=== PATIENT | male | born 1940 | race Caucasian/White ===

== ENCOUNTER → 2016-10-07 | Outpatient (CLI) | payer MEDICARE, OTHER ==
[~2016-10-07] MED LIST: HYDR-707 PO
--- NOTE | 2016-10-07 16:50 | Diagnostic Imaging Report ---
INDICATION: Left leg injury with continued pain. TECHNIQUE: AP and lateral views of the left lower leg were obtained. FINDINGS: No acute fracture or malalignment is identified. There is mild fragmentation along the inferior margin of the lateral malleolus which may be related to an old avulsion injury. Benign type periosteal reaction is noted involving the tibia and fibula. IMPRESSION: Probable old lateral malleolar avulsion injury without evidence of acute abnormality. Dictated by: Dictated on workstation # [id number]
== END ==
LOC: RAD 16:25
PROVIDERS: ATTEND Family Medicine
DX: M79.662 Pain in left lower leg (principal)
CPT/HCPCS: 73590

== ENCOUNTER → 2016-11-01 | Outpatient (CLI) | payer MEDICARE, OTHER ==
--- NOTE | 2016-11-01 11:12 | Diagnostic Imaging Report ---
PROCEDURE: MRI left joint lower extremity without contrast. TECHNIQUE: Multiplanar, multisequence non contrast-enhanced MRI of the left lower extremity was accomplished. INDICATION: Left knee pain. FINDINGS: There is moderate to large suprapatellar effusion. There is a Duron's cyst measuring 2.9 x 1.8 x 4.7 cm. There is surrounding free fluid seen compatible with leakage. The extensor mechanism is intact. The ACL and the PCL are intact. There is a complex tear involving the body and posterior horn of the medial meniscus. The body of the medial meniscus is extruded. There is a question of small displaced fragment of the torn meniscus seen above the body of the meniscus, possibly a displaced fragment from tear in the posterior horn/body junction. The lateral meniscus demonstrates no definite tear. There is slight buckling of the MCL which appears to relate to the extruded meniscus and adjacent soft tissue thickening underneath the MCL. No MCL tear is seen however. There is severe loss of cartilage in the medial compartment. The lateral compartment demonstrates only mild thinning of the cartilage. The patellofemoral compartment demonstrates moderate to severe thinning of the cartilage along the medial facet of the patella and mild fissuring in the lateral facet. There is significant bone marrow edema in the lateral tibial condyle and the lateral femoral condyle. This is most likely degenerative related. Minimal subchondral edema in the patella is also likely degenerative. The muscle bulk and signal around the knee appear unremarkable. IMPRESSION: 1. Severe cartilage loss and osteoarthritic changes in the medial compartment. There is moderate atherosclerotic changes in the patellofemoral compartment. 2. Complex tear in the medial meniscus, with a question of a small displaced fragment above the extruded torn meniscus body is seen. 3. Large suprapatellar effusion. 4. Leaking Duron's cyst. Dictated by: Dictated on workstation # [id number]
== END ==
LOC: RAD 09:52
PROVIDERS: ATTEND Orthopaedic Surgery
DX: S83.232A Complex tear of medial meniscus, current injury, left knee, initial encounter (principal); M25.462 Effusion, left knee; M17.12 Unilateral primary osteoarthritis, left knee; M66.0 Rupture of popliteal cyst; X58.XXXA Exposure to other specified factors, initial encounter; Y99.8 Other external cause status
CPT/HCPCS: 73721

== ENCOUNTER 2017-01-03 11:24 | Outpatient (RCR) | payer MEDICARE, OTHER | END 2017-01-03 12:26 | disposition home or self-care (01) | PROVIDERS: ATTEND Orthopaedic Surgery | DX: Z47.1 Aftercare following joint replacement surgery (principal); Z96.652 Presence of left artificial knee joint ==

== ENCOUNTER 2018-02-24 16:19 | Emergency (ER) | payer MEDICARE, OTHER ==
[~2018-02-24] VITALS: Ht 180.3 cm; Wt 86.6 kg
--- OUTSIDE RECORDS SUMMARY | 2018-02-24 16:23 | XMS REPORT | Continuity of Care Document ---
Author Author [facility] Organization [facility] Address Unknown Phone Unavailable Support Name Relationship Address Phone YVONNE RODRIGUEZ Next Of Kin [address] [place] [address] Insurance Providers Payer Name Policy Number Subscriber Name Relationship Comm Crossover Enter Ins Name [id number] Elen Rodriguez 01 Self / Same As Patient Wps Medicare [id number] Elen Rodriguez 01 Self / Same As Patient Advance Directives Directive Response Recorded Date Advance Directives N 10/26/12 12:06pm Health Care Power of Correctional Officer Captain N 10/26/12 12:06pm Organ Donor N 10/26/12 12:06pm Problems No Known Problems or Medical conditions. Family History History Response Recorded Date/Time Hx Family Cancer Y ESOPHAGEAL CANCER - BROTHER 10/26/12 12:12pm Hx Family Lung Cancer Y BROTHER 10/26/12 12:12pm Hx Family Colorectal Cancer Y MOTHER 12:12pm Allergies, Adverse Reactions, Alerts Allergen Type Severity Reaction Last Updated No Known Drug Allergies 10/26/12 Medications Medication Dose Units Route Sig Qty Days Acetaminophen/Hydrocodone Bitart (Lortab 5-500 Tablet) 1 - 2 Each PO Q4HR PRN 30 Immunizations Name Given Type Date of Pneumonia Vaccine 10/26/02 H Response Recorded Date/Time Status not known Unknown Results No Known Relevant Diagnostic Tests, Laboratory Data and/or Discharge Summary. Procedures Procedure Code Date LAPAROSCOPIC CHOLECYSTECTOMY 51.23 INTRAOPER CHOLANGIOGRAM 87.53 10/29/12 LEFT HEART CARDIAC CATH 37.22 10/28/12 LT HEART ANGIOCARDIOGRAM 88.53 10/28/12 CORONAR ARTERIOGR-2 CATH 88.56 10/28/12 Encounters Encounter Location Date/Time Discharged Inpatient [facility] 11:07am
--- OUTSIDE RECORDS SUMMARY | 2018-02-24 16:23 | XMS REPORT | Continuity of Care Document ---
Author Author [facility] Organization [facility] Address Unknown Phone Unavailable Allergies Active Description Code Type Severity Reaction Onset Reported/Identified Relationship to Patient Clinical Status Yes No Known Drug Allergies [id number] Drug Allergy Unknown N/A 10/26/2012 Medications There is no data. 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 05/08/1225 ABIMBOLA MAZARIEGOS DO Ot Z96.652 PRESENCE OF LEFT ARTIFICIAL KNEE JOINT 10/30/2012 LITO CASTREJON MD Ot 272.0 PURE HYPERCHOLESTEROLEM 10/30/2012 LITO CASTREJON MD Ot 272.4 HYPERLIPIDEMIA NEC/NOS 10/30/2012 LITO CASTREJON MD Ot 414.01 CORONARY ATHEROSCLEROSIS OF [place] CORON 10/30/2012 LITO CASTREJON MD Ot 427.1 PAROX VENTRIC TACHYCARD 10/30/2012 LITO CASTREJON MD Ot 427.69 PREMATURE BEATS NEC 10/30/2012 LITO CASTREJON MD Ot 574.40 CHOLEDOCHLITH/GB INF NEC 10/30/2012 LITO CASTREJON MD Ot 780.2 SYNCOPE AND COLLAPSE 10/30/2012 LITO CASTREJON MD Ot 780.4 DIZZINESS AND GIDDINESS 10/30/2012 LITO CASTREJON MD Ot 786.09 RESPIRATORY ABNORM NEC 10/30/2012 LITO CASTREJON MD Ot V15.82 HISTORY OF TOBACCO USE 10/30/2012 LITO CASTREJON MD Ot V17.49 FAMILY HISTORY OF OTHER CARDIOVASCULAR D 10/30/2016 MEÑO CASTILLO MD Ot M79.662 PAIN IN LEFT LOWER LEG 11/01/2016 MEÑO CASTILLO MD Ot M79.662 PAIN IN LEFT LOWER LEG 11/07/2016 ABIMBOLA MAZARIEGOS DO Ot M17.12 UNILATERAL PRIMARY OSTEOARTHRITIS, LEFT 11/07/2016 DELILHA DO, ABIMBOLA F Ot M25.462 EFFUSION, LEFT KNEE 11/07/2016 DELILAH DO, ABIMBOLA F Ot M66.0 RUPTURE OF POPLITEAL CYST 11/07/2016 DELILAH DO, ABIMBOLA F Ot S83.232A COMPLEX TEAR OF MEDIAL MENSC, CURRENT IN 11/07/2016 DELILAH DO, ABIMBOLA F Ot X58.XXXA EXPOSURE TO OTHER SPECIFIED FACTORS, INI 11/07/2016 DELILAH DO, ABIMBOLA F Ot Y99.8 OTHER EXTERNAL CAUSE STATUS 11/08/2016 DELILAH DO, ABIMBOLA F Ot M17.12 UNILATERAL PRIMARY OSTEOARTHRITIS, LEFT 11/08/2016 DELILAH DO, ABIMBOLA F Ot M25.462 EFFUSION, LEFT KNEE 11/08/2016 DELILAH DO, ABIMBOLA F Ot M66.0 RUPTURE OF POPLITEAL CYST 11/08/2016 DELILAH DO, ABIMBOLA F Ot S83.232A COMPLEX TEAR OF MEDIAL MENSC, CURRENT IN 11/08/2016 DELILAH DO, ABIMBOLA F Ot X58.XXXA EXPOSURE TO OTHER SPECIFIED FACTORS, INI 11/08/2016 DELILAH DO, ABIMBOLA F Ot Y99.8 OTHER EXTERNAL CAUSE STATUS 11/08/2016 DELILAH DO, ABIMBOLA F Ot M17.12 UNILATERAL PRIMARY OSTEOARTHRITIS, LEFT 11/08/2016 DELILAH DO, ABIMBOLA F Ot M25.462 EFFUSION, LEFT KNEE 11/08/2016 DELILAH DO, ABIMBOLA F Ot M66.0 RUPTURE OF POPLITEAL CYST 11/08/2016 DELILAH DO, ABIMBOLA F Ot S83.232A COMPLEX TEAR OF MEDIAL MENSC, CURRENT IN 11/08/2016 DELILAH DO, ABIMBOLA F Ot X58.XXXA EXPOSURE TO OTHER SPECIFIED FACTORS, INI 11/08/2016 DELILAH DO, ABIMBOLA F Ot Y99.8 OTHER EXTERNAL CAUSE STATUS 11/08/2016 DELILAH DO, ABIMBOLA F Ot M17.12 UNILATERAL PRIMARY OSTEOARTHRITIS, LEFT 11/08/2016 DELILAH DO, ABIMBOLA F Ot M25.462 EFFUSION, LEFT KNEE 11/08/2016 DELILAH DO, ABIMBOLA F Ot M66.0 RUPTURE OF POPLITEAL CYST 11/08/2016 DELILAH DO, ABIMBOLA F Ot S83.232A COMPLEX TEAR OF MEDIAL MENSC, CURRENT IN 11/08/2016 DELILAH DO, ABIMBOLA F Ot X58.XXXA EXPOSURE TO OTHER SPECIFIED FACTORS, INI 11/08/2016 DELILAH DO, ABIMBOLA F Ot Y99.8 OTHER EXTERNAL CAUSE STATUS 11/09/2016 DELILAH AMAYA, ABIMBOLA Box Ot M17.12 UNILATERAL PRIMARY OSTEOARTHRITIS, LEFT 11/09/2016 DELILAH AMAYA, ABIMBOLA Box Ot M25.462 EFFUSION, LEFT KNEE 11/09/2016 DELILAH AMAYA, ABIMBOLA Box Ot M66.0 RUPTURE OF POPLITEAL CYST 11/09/2016 ABIMBOLA MAZARIEGOS DO Ot S83.232A COMPLEX TEAR OF MEDIAL MENSC, CURRENT IN 11/09/2016 DELILAH AMAYA ABIMBOLA Box Ot X58.XXXA EXPOSURE TO OTHER SPECIFIED FACTORS, INI 11/09/2016 ABIMBOLA MAZARIEGOS DO Ot Y99.8 OTHER EXTERNAL CAUSE STATUS 11/26/2016 ABIMBOLA MAZARIEGOS DO Ot M17.12 UNILATERAL PRIMARY OSTEOARTHRITIS, LEFT 11/26/2016 DELILAH AMAYA, ABIMBOLA Box Ot M25.462 EFFUSION, LEFT KNEE 11/26/2016 DELILAH AMAYA, ABIMBOLA Box Ot M66.0 RUPTURE OF POPLITEAL CYST 11/26/2016 DELILAH AMAYA, ABIMBOLA Box Ot S83.232A COMPLEX TEAR OF MEDIAL MENSC, CURRENT IN 11/26/2016 DELILAH AMAYA, ABIMBOLA Box Ot X58.XXXA EXPOSURE TO OTHER SPECIFIED FACTORS, INI 11/26/2016 ABIMBOLA MAZARIEGOS DO Ot Y99.8 OTHER EXTERNAL CAUSE STATUS 12/11/2016 DELILAH AMAYA ABIMBOLA Box Ot Z47.1 AFTERCARE FOLLOWING JOINT REPLACEMENT FISCHER 12/11/2016 DELILAH AMAYA ABIMBOLA Box Ot Z96.652 PRESENCE OF LEFT ARTIFICIAL KNEE JOINT 01/03/2017 DELILAH AMAYA ABIMBOLA Box Ot Z47.1 AFTERCARE FOLLOWING JOINT REPLACEMENT FISCHER 01/03/2017 DELILAH AMAYA ABIMBOLA Box Ot Z96.652 PRESENCE OF LEFT ARTIFICIAL KNEE JOINT Procedures Code Description Performed By Performed On 37.22 LEFT HEART CARDIAC CATH 10/28/2012 88.53 LT HEART ANGIOCARDIOGRAM 10/28/2012 88.56 CORONAR ARTERIOGR-2 CATH 10/28/2012 51.23 LAPAROSCOPIC CHOLECYSTECTOMY 10/29/2012 87.53 INTRAOPER CHOLANGIOGRAM 10/29/2012 Results There is no data. Encounters ACCT No. Visit Date/Time Discharge Status Pt. Type Provider Facility Loc./Unit Complaint [id number] 01/03/2017 11:24:00 01/03/2017 12:26:00 DIS Outpatient ABIMBOLA MAZARIEGOS DO [facility] REHAB S/P L TKR [id number] 11/01/2016 09:52:00 11/01/2016 23:59:59 CLS Outpatient ABIMBOLA MAZARIEGOS DO [facility] RAD LEFT KNEE PAIN [id number] 10/07/2016 16:25:00 10/07/2016 23:59:59 CLS Outpatient MEÑO CASTILLO MD [facility] RAD PAIN IN LT LEG [id number] 10/26/2012 11:07:00 10/30/2012 10:00:00 DIS Inpatient CASH DUMONT, LITO Reddy [facility] SURGICAL UNSTABLE ANGINA
[2018-02-24] MEDS ORDERED: TETANUS,DIPTH,PERTUSS P/F (BOOSTRIX) 0.5 ML VIAL IM ONE (17:30)
[2018-02-24] MEDS ORDERED: LIDOCAINE/EPI 2% 1:100,00 (XYLOCAINE) 20 ML VIAL INJ ONE (17:30)
[2018-02-24] MEDS ORDERED: TRIM/SULFAMETH 160/800 (SEPTRA DS) TAB PO ONE (17:30)
[2018-02-24] MEDS ORDERED: NS IV 1000 ML 1,000 ML IV ONE (17:31)
[2018-02-24] MEDS ORDERED: SULF1TAB35 PO (18:47)
--- NOTE | 2018-02-24 18:47 | ED General ---
General Chief Complaint: Laceration Stated Complaint: LACERATION ON R ARM Nursing Triage Note: PT AMB TO ROOM #2 W/O DIFFICULTY, DRSG OVER RT ARM DRY AND IN PLACE. A&OX4. CO RT FOREARM LACERATION. 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 DENIES HITTING HEAD OR ANY OTHER INJURIES. VISIBLE TENDON AND MUSCLE VISIBLE IN WOUND BED. ACTIVE BLEEDING NOTED. DISTAL RADIAL PULSES PRESENT. LT UPPER EXTREMITY CAP REFILL LESS THAN 3 SEC. DENIES PAIN TO AREA REPORTING "I CAN TELL ITS THERE, BUT IT DOESNT HURT." Nursing Sepsis Screen: No Definite Risk Source of Information: Patient Exam Limitations: Intoxication History of Present Illness Date Seen by Provider: Feb 24, 2018 Time Seen by Provider: 17:10 Initial Comments See history above. This 77-year-old gentleman tripped and fell into a [place]. This resulted in a deep laceration on the ventral aspect of the right forearm. There is obvious injury to the muscle and tendon in this area. 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 Sensation is intact in all 5 fingers. There is no active bleeding. Patient is not up-to-date on his tetanus immunizations. There is grass debris within the wound. Allergies and Home Medications Allergies Coded Allergies: No Known Drug Allergies (Unverified , 10/26/12) Home Medications Hydrocodone Bit/Acetaminophen 1 Each Tablet, 1-2 EACH PO Q4HR PRN, (Reported) Sulfamethoxazole/Trimethoprim 1 Each Tablet, 1 EACH PO BID Prescribed by: JOCELYN DUONG on 02/24/18 5502 Patient Home Medication List Home Medication List Reviewed: Yes Review of Systems Review of Systems Constitutional: no symptoms reported EENTM: no symptoms reported Respiratory: no symptoms reported Cardiovascular: no symptoms reported Gastrointestinal: no symptoms reported Genitourinary: no symptoms reported Musculoskeletal: see HPI Skin: see HPI Psychiatric/Neurological: No Symptoms Reported Hematologic/Lymphatic: No Symptoms Reported Past Rtpqpze-Uaoess-Xudgce Hx Past Med/Social Hx: Reviewed Nursing Past Med/Soc Hx Patient Social History Alcohol Use: Denies Use Recreational Drug Use: No Smoking Status: Never a Smoker 2nd Hand Smoke Exposure: No Recent Foreign Travel: No Contact w/Someone Who Travel: No Recent Infectious Disease Expo: No Recent Hopitalizations: No Physical Abuse: No Sexual Abuse: No Immunizations Up To Date Tetanus Booster (TDap): Less than 5yrs Date of Pneumonia Vaccine: October 26, 2002 Seasonal Allergies Seasonal Allergies: No Past Medical History Surgeries: Yes Gallbladder, Orthopedic Respiratory: No Cardiac: No Neurological: No Reproductive Disorders: No Gastrointestinal: No Musculoskeletal: No Endocrine: No HEENT: No Cancer: No Psychosocial: No Integumentary: No Blood Disorders: No Physical Exam Vital Signs Vital Signs - First Documented 02/24/18 16:55 Temp 98.1 Pulse 80 Resp 18 B/P (MAP) 136/76 (96) Pulse Ox 97 O2 Delivery Room Air Capillary Refill : Less Than 3 Seconds Height, Weight, BMI Height: 5'11.00" Weight: 191lbs. oz. 86.496702ab; BMI Method:Stated General Appearance: No Apparent Distress, WD/WN HEENT: PERRL/EOMI, Normal ENT Inspection Neck: Normal Inspection Respiratory: Lungs Clear, Normal Breath Sounds, No Accessory Muscle Use, No Respiratory Distress Cardiovascular: Regular Rate, Rhythm, No Edema, No Murmur Gastrointestinal: Normal Bowel Sounds Extremity: Normal Capillary Refill, Other (8-9 cm laceration on the ventral surface of the right forearm with exposed and injured muscle and tendon evident. No active bleeding. 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 Norm as Tested Skin: Normal Color, Warm/Dry Procedures/Interventions Wound Location: Upper Extremities Other Wound Location Ventral surface of the right forearm Wound Length (cm): 8 Wound's Depth, Shape: into muscle, linear, sub Q, tendon Wound Explored: foreign body removed Irrigated w/ Saline (ccs): 1000 Betadine Prep?: Yes Anesthesia: Lidocaine w/ Epi Volume Anesthetic (ccs): 12 Suture: Prolene Suture Size: 4-0 Number of Sutures: 7 Sterile Dressing Applied?: Yes Progress/Results/Core Measures Suspected Sepsis Recent Fever Within 48 Hours: No Infection Criteria Present: None New/Unexplained Altered Menta: No Sepsis Screen: No Definite Risk SIRS Temperature:98.1 Pulse: 80 Respiratory Rate: 18 Blood Pressure 136 /76 Mean: 96 Results/Orders My Orders Orders - JOCELYN BUI MD Lidocaine/Epi 2% 1:100,000 (Xylocaine/Ep (02/24/18 17:30) Dipht,Pertuss(Acell),Tet Adult (Boostrix (02/24/18 17:30) Sulfamethoxazole/Trimet Ds Tab (Bactrim (02/24/18 17:30) Saline Lock/Iv-Start (02/24/18 17:31) Ns Iv 1000 Ml (Sodium Chloride 0.9%) (02/24/18 17:31) Medications Given in ED Current Medications Medications Dose Ordered Sig/[place] Route Start Time Stop Time Status Last Admin Dose Admin Diphtheria/ Tetanus/Acell Pertussis 0.5 ml ONCE ONCE IM 02/24/18 17:30 02/24/18 17:31 DC 02/24/18 17:26 0.5 ML Lidocaine/ Epinephrine 20 ml ONCE ONCE INJ 02/24/18 17:30 02/24/18 17:31 DC 02/24/18 17:40 20 ML Sodium Chloride 1,000 ml @ 0 mls/hr Q0M ONCE IV 02/24/18 17:31 02/24/18 17:32 DC 02/24/18 17:39 0 MLS/HR Trimethoprim/ Sulfamethoxazole 1 ea ONCE ONCE PO 02/24/18 17:30 02/24/18 17:31 DC 02/24/18 17:25 1 EA Vital Signs/I&O 02/24/18 16:55 Temp 98.1 Pulse 80 Resp 18 B/P (MAP) 136/76 (96) Pulse Ox 97 O2 Delivery Room Air Capillary Refill : Less Than 3 Seconds Blood Pressure Mean: 96 Progress Note : Progress Note Case was discussed with Dr. Saldivar who agreed with debridement and loose closure with referral to him. He would like to see the patient tomorrow at 13: 00. Patient was given a tetanus booster and started on Bactrim for infection prophylaxis. Wound was irrigated with 1000 mL normal saline, debrided of grass and dirt, and loosely approximated. Sterile dressing was applied. Patient tolerated the procedure quite well. Departure Impression Primary Impression: Flexor tendon laceration, forearm, open wound Qualified Codes: S56.221A - Laceration of other flexor muscle, fascia and tendon at forearm level, right arm, initial encounter; S51.801A - Unspecified open wound of right forearm, initial encounter Additional Impression: Laceration of flexor muscle at forearm level Disposition: 01 HOME, SELF-CARE Condition: Improved Departure-Patient Inst. Decision time for Depature: 18:43 Referrals: ABIMBOLA MAZARIEGOS DO (PCP) Primary Care Physician WILLIAMS SALDIVAR DO Patient Instructions: Laceration Repair With Stitches (DC), Tendon Laceration ( DC) Add. Discharge Instructions: Follow-up with Dr. Saldivar at 1:00 p.m. tomorrow, Friday, February 25. His contact information is listed below. Complete your antibiotic as prescribed. Monitor your wound for signs of infection including increasing pain, increasing swelling, increasing redness, heat, fever, or puslike drainage. Return to care promptly few notice these symptoms. You may allow soapy water to run over the wound in the shower but do not scrub directly over the wound. Otherwise keep the wound clean and dry. Do not submerge until sutures are removed. Cover while wound is draining or when in dirty environments. You may use ibuprofen up to 400 mg every 6 hours as needed for pain and/or Tylenol (acetaminophen) up to 1000 mg every 6 hours as needed. All discharge instructions reviewed with patient and/or family. Voiced understanding. Scripts Sulfamethoxazole/Trimethoprim (Bactrim Ds Tablet) 1 Each Tablet 1 EACH PO BID, #20 TAB Prov: JOCELYN BUI MD 02/24/18 Copy Copies To 1: WILLIAMS SALDIVAR JOSHUA T MD Feb 24, 2018 18:47
[2018-02-24 19:00] VITALS: BP 119/76
== END 2018-02-24 19:00 | disposition home or self-care (01) ==
LOC: EDUNIT# 16:19 → ER 16:20
DX: S56.221A Laceration of other flexor muscle, fascia and tendon at forearm level, right arm, initial encounter (principal); Z98.890 Other specified postprocedural states; Z23 Encounter for immunization; W01.0XXA Fall on same level from slipping, tripping and stumbling without subsequent striking against object, initial encounter
CPT/HCPCS: 12002; 64450; 90471; 90715

== ENCOUNTER → 2019-09-30 | Outpatient (CLI) | payer MEDICARE, OTHER ==
[~2019-09-30] MED LIST changes: +SULF1TAB35 PO
--- NOTE | 2019-09-30 09:09 | Diagnostic Imaging Report ---
PROCEDURE: CT neck soft tissue without contrast. TECHNIQUE: Multiple contiguous axial images were obtained through the neck without the use of intravenous contrast. Auto Exposure Controls were utilized during the CT exam to meet ALARA standards for radiation dose reduction. INDICATION: Dysphagia, sensation of food getting stuck. COMPARISON: None available. FINDINGS: The airways widely patent. There is no abnormal mural thickening involving the nasopharynx, oropharynx or hypopharynx. There are calcifications associated with the palatine tonsils that are most compatible with sequelae of prior infection. The base of the tongue and floor of the mouth are normal in appearance. The right-sided laryngeal ventricle is asymmetrically dilated. The right piriform sinus is slightly dilated compared to the left and the aryepiglottic fold is slightly medialized on the right. These features raise the possibility of right-sided vocal cord paralysis. There are a few borderline enlarged right upper paratracheal lymph nodes with the largest measuring 1.2 x 1.0 cm. No additional mass lesion along the expected course of the vagal or recurrent laryngeal nerve. The left true vocal cord is normal in appearance. No cervical lymphadenopathy. Thyroid is normal. The parotid and submandibular glands are symmetric. Visualized aspects of the brain are unremarkable. Orbits are normal. Paranasal sinuses are clear. Mastoid air cells are also clear. Lung apices are normal. IMPRESSION: 1. Airway is patent without mass lesion in the pharynx. 2. Potential right-sided vocal cord paralysis. Consider ENT consultation for direct visualization. 3. A few borderline enlarged right upper paratracheal lymph nodes are noted and nonspecific in nature. These may be due to sequelae of prior infection and reactive in nature. Consider CT chest with IV contrast to evaluate for potential additional lymphadenopathy in the chest. Dictated by: Dictated on workstation # [id number]
== END ==
LOC: RAD 08:25
PROVIDERS: ATTEND Otolaryngology Otolaryngology/Facial Plastic Surgery
DX: R13.10 Dysphagia, unspecified (principal)
CPT/HCPCS: 70490

== ENCOUNTER → 2019-10-01 | Outpatient (CLI) | payer MEDICARE, OTHER ==
[~2019-10-01] MED LIST changes: +HOLD METFORMIN - RECEIVED CONTRAST 20 ML VIAL IV SCH; +IOHEXOL 350 MG/ML 100 ML (OMNIPAQUE 350) VIAL IV ONE; +NS 100 ML (IVPB) BAG IV ONE
[2019-10-01 12:18] LABS: BUN/CREATININE RATIO 35; CREATININE SERUM 1.03 MG/DL (0.60-1.30); GFR ESTIMATED > 60
--- NOTE | 2019-10-01 13:58 | Diagnostic Imaging Report ---
EXAMINATION: CT Neck and chest with intravenous contrast. TECHNIQUE: Multiple contiguous axial images were obtained through the neck and chest after the uneventful administration of intravenous contrast. All CT scans use one or more of the following dose optimizing techniques: automated exposure control, MA and/or KvP adjustment based on a patient size and exam type, or iterative reconstruction. HISTORY: Dysphasia. Follow-up. COMPARISON: CT neck on 09/30/2019. FINDINGS: Neck CT: Redemonstration of the mildly flaccid right vocal cord with dilated right piriform sinus and laryngeal ventricle. No evidence of mass is seen in the laryngeal structures. No prevertebral or retropharyngeal fluid collections are seen. The nasopharynx is unremarkable. Tonsils are seen in the bilateral palatine tonsils. No masses are seen in the oropharynx. The parotid, submandibular and thyroid gland are unremarkable. Mildly prominent lymph nodes are seen in the neck which do not meet significance based on size criteria. No focal inflammatory changes are demonstrated. No soft tissue mass or fluid collection demonstrated. The vascular structures the neck demonstrate no evidence of high-grade stenosis on this nondedicated exam. The visualized lung apices are clear. The visualized intracranial contents demonstrate no evidence of pathologic intracranial enhancement or intracranial mass effect. Visualized orbital contents are unremarkable. The visualized paranasal sinuses are clear. The mastoids and middle ears are clear. No acute osseous abnormality in the cervical spine. Chest CT: The heart size is within normal limits. No pericardial effusion is present. Enlarged lymph nodes are seen in the upper mediastinum, most prominent in the tracheoesophageal groove. The largest measures 1.4 x 1.0 cm. Scattered calcified lymph nodes are seen in the mediastinum and right hilum. The lungs demonstrate no pulmonary nodules or masses. There are no focal areas of consolidation. No central endobronchial obstructing lesions are identified. There is no pleural effusion or pneumothorax. The osseous structures demonstrate no acute abnormalities. There is esophageal wall thickening and edema involving the distal 3rd of the esophagus. In the mid esophagus a fluid level is present with mildly dilated esophagus. Suspicious peripherally enhancing lesions are seen in the liver, the largest in the right hepatic lobe near the dome measuring approximately 2.0 x 1.6 cm. The portal vein is patent. Bilateral adrenal nodules are seen, with the right adrenal nodule measuring 1.9 x 1.7 cm and the left measuring 1.6 x 1.4 cm. Pathologically enlarged lymph nodes are seen in the upper abdomen near the GE junction, the largest measuring 2.4 x 1.9 cm. IMPRESSION: 1. Wall thickening and edema involving the distal 3rd of the esophagus, concerning for malignancy. Recommend further evaluation with direct visualization. 2. Findings are also concerning for metastatic disease with suspicious masses in the liver, bilateral adrenal glands, and pathologically enlarged lymph nodes in the upper abdomen near the GE junction and in the superior mediastinum in the right tracheoesophageal groove. 3. Redemonstration of the findings suspicious for right-sided vocal cord paralysis. The enlarged lymph nodes in the right tracheoesophageal groove likely are causing mass effect on the right recurrent laryngeal nerve. Dictated by: Dictated on workstation # [id number]
== END ==
LOC: RAD 11:38
PROVIDERS: ATTEND Otolaryngology Otolaryngology/Facial Plastic Surgery
DX: R13.10 Dysphagia, unspecified (principal); R59.9 Enlarged lymph nodes, unspecified; R93.3 Abnormal findings on diagnostic imaging of other parts of digestive tract
CPT/HCPCS: 36415; 70491; 71260; 82565; 84520

== ENCOUNTER 2019-10-11 07:20 | Outpatient (RCR) | payer MEDICARE, OTHER ==
[~2019-10-11] VITALS: Ht 180 cm; Wt 74.0 kg
[~2019-10-11 07:20] MED LIST changes: -HOLD METFORMIN - RECEIVED CONTRAST 20 ML VIAL IV SCH; -IOHEXOL 350 MG/ML 100 ML (OMNIPAQUE 350) VIAL IV ONE; -NS 100 ML (IVPB) BAG IV ONE
== END 2019-10-11 16:08 | disposition home or self-care (01) ==
LOC: PREOP 07:20
PROVIDERS: ATTEND Surgery
DX: Z01.818 Encounter for other preprocedural examination (principal); Z11.59 Encounter for screening for other viral diseases
CPT/HCPCS: 87635

== ENCOUNTER → 2019-10-12 | Outpatient (CLI) | payer MEDICARE, OTHER ==
[~2019-10-12] MED LIST changes: +HYDR-83 PO
--- NOTE | 2019-10-12 15:06 | Diagnostic Imaging Report ---
EXAMINATION: PET/CT. INDICATION: Esophageal carcinoma. EXAMINATION: After intravenous administration of 13.87 mCi of F18-FDG in the left antecubital fossa, a series of overlapping emission and transmission PET images was obtained. In the coronal, transaxial, and sagittal planes, the area imaged extended from the skull base through the upper thighs. HEIGHT: 5' 8". WEIGHT: 174. BLOOD GLUCOSE LEVEL: 89. COMPARISON: There are no prior PET/CT examinations available for comparison. FINDINGS: The CT neck and chest exam of 10/01/2019 indicated that the wall of the distal third of the esophagus was thickened and concerning for malignancy. There also appeared to be metastatic lesions involving the liver, adrenal glands, lymph nodes in the upper abdomen near the gastroesophageal junction, and in the superior mediastinum in the right tracheal esophageal groove. Reportedly, in the interval since the prior exam, the patient has undergone endoscopy and the diagnosis of esophageal carcinoma has been established. The PET/CT images do show that the distal esophagus is hypermetabolic with a maximum SUV of 7.5. The node in the tracheoesophageal groove on the right is also hypermetabolic with a maximum SUV of 5.2. There are also hypermetabolic foci within the liver. These have a maximum SUV of 7.4. The nodes in the upper abdomen seen previously are also hypermetabolic with a maximum SUV of 5.5. A left adrenal nodule is hypermetabolic as well with maximum SUV of 4.6. However, the right adrenal nodule is not hypermetabolic and this may represent an adrenal adenoma. Furthermore, there are numerous hypermetabolic foci scattered throughout the osseous structures. This includes lesions involving the left 8th rib near the costovertebral junction, vertebral body of T9, sternum, L4 on the right, left sacrum, and the right ilium. The most intense lesion is the L4 vertebral body with a maximum SUV of 7.7. There is also a small focus of hypermetabolic activity in the soft tissues posterior to the right hip. The maximum SUV in this area is 4.7. There is no other hypermetabolic activity to suggest the presence of malignancy. The CT images do show that the esophagus is partially filled with fluid. There is no evidence for complete obstruction of the esophagus. If further study is desired, then a Gastrografin swallow would be recommended. There is also a gastrostomy tube in place. The tube seems to be in good position. IMPRESSION: 1. The distal esophagus is hypermetabolic, consistent with the patient's recent diagnosis of esophageal carcinoma. 2. There is also metastatic disease involving the liver, left adrenal gland, and nodes in the upper abdomen. Multiple skeletal lesions are seen as well. There may also be a metastatic focus to the soft tissues posterior to the right hip. 3. The esophagus is partially filled with fluid. While there is no evidence for complete obstruction of the esophagus, consideration should be given to a Gastrografin swallow. Dictated by: Dictated on workstation # [id number]
== END ==
LOC: RAD 10:18
PROVIDERS: ATTEND Internal Medicine Hematology & Oncology
DX: C15.9 Malignant neoplasm of esophagus, unspecified (principal); C78.7 Secondary malignant neoplasm of liver and intrahepatic bile duct; C79.72 Secondary malignant neoplasm of left adrenal gland; C77.2 Secondary and unspecified malignant neoplasm of intra-abdominal lymph nodes; M89.9 Disorder of bone, unspecified

== ENCOUNTER 2019-10-14 07:29 | Day surgery (SDC) | payer MEDICARE, OTHER ==
[~2019-10-14] VITALS: Ht 180 cm; Wt 74.0 kg
[2019-10-14] VITALS (9 sets, daily range): BP systolic 95–125; BP diastolic 54–88
[~2019-10-14 07:29] MED LIST changes: -HYDR-83 PO
[2019-10-14] MEDS ORDERED: LACTATED RINGERS 1,000 ML IV PRN (08:14)
[2019-10-14] MEDS ORDERED: ceFAZolin 2 GM IV Premixed 50 ML IV ONE (08:15)
[2019-10-14] MEDS ORDERED: ACETAMINOPHEN 325 MG TABLET PO PRN (08:30)
[2019-10-14] MEDS ORDERED: ONDANSETRON 4 MG/2 ML (SDV) Z0FRAN IVP PRN (08:30)
[2019-10-14] MEDS ORDERED: HYDROcodone/APAP 5 MG/325 MG (LORTAB) TAB PO ONE (08:30)
[2019-10-14] MEDS ORDERED: morphine INJ 10 MG/ML 1ML (SYR OR VIAL) IVP PRN (08:30)
[2019-10-14] MEDS ORDERED: CATHETER FLUSH 10 ML SYR IV PRN (08:30)
--- NOTE | 2019-10-14 08:30 | Progress Note-Pre Operative ---
Pre-Operative Progress Note H&P Reviewed The H&P was reviewed, patient examined and no changes noted. Date Seen by Provider: October 14, 2019 Time Seen by Provider: 08:30 Date H&P Reviewed: October 14, 2019 Time H&P Reviewed: 08:25 Pre-Operative Diagnosis: Metastatic esophageal cancer REGINALDO ROYAL JOB SPOTTER October 14, 2019 08:30
[2019-10-14] MEDS ORDERED: HYDR-83 PO (08:32)
--- NOTE | 2019-10-14 08:33 | Discharge Inst-Surgical ---
D/C Lap Instructions-KIDO Reconcile Patient Problems Problems Reviewed?: Yes New, Converted, or Re-Newed RX: RX on Chart Follow Up Appt as needed Activity as tolerated No driving for 24 hours No driving while on pain medications Incentive Spirometry use every 2 hours while awake Regular Diet Symptoms to Report: Fever over 101 degree F, Nausea/Vomiting Infection Signs and Symptoms to report: Increased redness, Foul odor of wound, Increased drainage Bathing instructions: May shower Operative Area Clean/Dry; Keep incision clean/dry If any problems/questions: Contact your physician or go to Emergency Room REGINALDO ROYAL APRN October 14, 2019 08:33
[2019-10-14] MEDS ORDERED: 0.9% SODIUM CHLORIDE PF INJ 20 ML VIAL ONE (08:52)
[2019-10-14] MEDS ORDERED: HEParin (CENTRAL IV FLUSH) 500 UNIT/5 ML SYR ONE (08:52)
[2019-10-14] MEDS ORDERED: BUP/EPI 0.5% 1:200,000 (SENSORCAINE) 30 ML VIAL ONE (08:53)
[2019-10-14] MEDS ORDERED: KETAMINE/NaCl 50 MG/5 ML SYRINGE (ED ONLY) ONE (09:24)
[2019-10-14] MEDS ORDERED: MIDAZOLAM 2 MG/2 ML (VERSED) VIAL ONE (09:24)
[2019-10-14] MEDS ORDERED: PROPOFOL INJECTION 50 ML IV ONE (10:12)
--- NOTE | 2019-10-14 10:18 | Progress Note-Post Operative ---
Post-Operative Progess Note Surgeon (s)/Typesetter Apprentice (s) Surgeon ANETTE SINGH MD Typesetter Apprentice: codi burton [employer] INSTRU[employer] Pre-Operative Diagnosis Metastatic esophageal cancer Post-Operative Diagnosis same Procedure & Operative Findings Date of Procedure 10/14/19 Procedure Performed/Findings placement left subclavian groshong implantable catheter under flouroscopy. Anesthesia Type mac with local Estimated Blood Loss Estimated blood loss (mL): minimal Specimens/Packing Specimens Removed none ANETTE SINGH MD October 14, 2019 10:18
--- NOTE | 2019-10-14 11:21 | Diagnostic Imaging Report ---
Fluoroscopy at 10:32. Indication: Groshong catheter placement. Fluoroscopic assistance was provided for Dr. Butt during his Groshong catheter placement procedure. 4.1 seconds of fluoroscopy time was utilized. A single spot film of the thorax was received. The newly inserted Groshong catheter is difficult to visualize. If further study is desired, then a followup chest exam would be recommended. Impression: 1. Fluoroscopic assistance was provided for Dr. Butt. 2. The newly inserted Groshong catheter was difficult to visualize. Recommendations as above. Dictated by: Dictated on workstation # [id number]
--- NOTE | 2019-10-14 12:07 | Diagnostic Imaging Report ---
INDICATION: Left subclavian Groshong catheter. COMPARISON: 10/26/2012 TECHNIQUE: Single frontal radiograph of the chest dated 10/14/2019 FINDINGS: Interval placement of a left subclavian Port-A-Cath is present with the distal tip overlying the expected location of the mid superior vena cava. No pneumothorax. The cardiac silhouette is within normal limits in size. No significant pulmonary vascular congestion. The lungs are clear. No pleural effusion. No pneumothorax. Scattered degenerative changes, particularly within the left shoulder. No acute osseous abnormality. IMPRESSION: Left-sided Port-A-Cath is in place with the distal tip overlying the expected location of the mid superior vena cava without pneumothorax or additional superimposed acute cardiopulmonary abnormality. Dictated by: Dictated on workstation # [id number]
--- NOTE | 2019-10-14 12:27 | Anesthesia-General Post-Op ---
MAC Patient Condition Mental Status/LOC: Same as Preop Cardiovascular: Satisfactory Nausea/Vomiting: Absent Respiratory: Satisfactory Pain: Controlled Complications: Absent Post Op Complications Complications None Follow Up Care/Instructions Patient Instructions None needed. Anesthesiology Discharge Order Discharge Order Patient is doing well, no complaints, stable vital signs, no apparent adverse anesthesia problems. No complications reported per nursing. ENRIQUE NGUYEN CRNA October 14, 2019 12:27
--- NOTE | 2019-10-14 13:38 | OPERATIVE REPORT ---
DATE OF SERVICE: 10/14/2019 ATTENDING PRIMARY CARE: Dr. Francoise Castanon. PREOPERATIVE DIAGNOSIS: Metastatic esophageal adenocarcinoma. POSTOPERATIVE DIAGNOSIS: Metastatic esophageal adenocarcinoma. PROCEDURE PERFORMED: Placement of left subclavian Groshong implantable catheter under fluoroscopy. SURGEON: Anette Singh MD. AIRCRAFT MANAGER: Antwan Jackson APRN. ANESTHESIA: Monitored anesthesia care with local. ESTIMATED BLOOD LOSS: Minimal. FINDINGS: Catheter tip at superior vena caval - right atrial junction. DISPOSITION: The patient tolerated the procedure well. INDICATIONS: The patient is a 78-year-old male known to us. He has had progressive dysphagia and weight loss. He was seen by ENT, where a CT scan was performed, which did show a large distal esophageal mass, which was worrisome for a neoplasm and what appeared to be metastatic lesions, bilateral adrenal glands as well as the liver. On 10/04/2019, he underwent an EGD as well as a balloon dilatation and percutaneous endoscopic gastrostomy tube placement. He was seen by oncology and it was decided to proceed with chemotherapy and will require a Groshong implantable catheter. DESCRIPTION OF PROCEDURE: The patient was brought to the operating room and laid supine on the table. After adequate IV pain and sedative medications and monitored anesthesia care, the chest and neck were prepped and draped in a standard surgical fashion. A 1% lidocaine with epinephrine was then used to anesthetize the left subclavian region. The left subclavian vein was then cannulated with drawing of venous blood. The guidewire was then inserted under fluoroscopy. The cannulating needle was removed and a skin incision was made using a 15 blade. The dilator and sheath were then introduced over the wire. The guidewire and dilator were then removed and a Groshong catheter was placed until the tip was at the superior vena caval - right atrial junction. The wire within the catheter was then removed. The catheter was cut down to size and a port placed onto the catheter. The chest reservoir was then created by extending the incision laterally and a plane created between the subcutaneous fat and the anterior pectoralis fascia using blunt dissection as well as electrocautery with visualization of good hemostasis. The port was then placed into the chest reservoir and sutured to the anterior pectoralis fascia using interrupted 3-0 Vicryl sutures. The subcutaneous tissue was then reapproximated using 3-0 Vicryl interrupted sutures. The skin was closed using 4-0 Monocryl running subcuticular suture. Wound was then cleaned and covered with Dermabond. The patient tolerated the procedure well. We will get a post-procedure chest x-ray to confirm placement and once confirmed, the port may be accessed and used at any time. Job ID: [id number] DocumentID: [id number] Dictated Date: 10/14/2019 10:30:31 Electric Bath Attendant Date: 10/14/2019 13:38:13 Dictated By: ANETTE SINGH MD
== END 2019-10-14 12:33 | disposition home or self-care (01) ==
LOC: SDC 07:29
PROVIDERS: ATTEND Surgery
DX: C15.5 Malignant neoplasm of lower third of esophagus (principal); K21.0 Gastro-esophageal reflux disease with esophagitis; C79.9 Secondary malignant neoplasm of unspecified site; I10 Essential (primary) hypertension; E78.00 Pure hypercholesterolemia, unspecified; Z90.49 Acquired absence of other specified parts of digestive tract; Z93.1 Gastrostomy status; Z79.899 Other long term (current) drug therapy; Z96.652 Presence of left artificial knee joint; Z80.1 Family history of malignant neoplasm of trachea, bronchus and lung
CPT/HCPCS: 71045; 87081

== ENCOUNTER → 2019-12-09 | Outpatient (CLI) | payer MEDICARE, OTHER ==
[~2019-12-09] MED LIST changes: +BARIUM SUSPENSION 2.1% (VANILLA SILQ) 450 ML PO ONE; +HOLD METFORMIN - RECEIVED CONTRAST 20 ML VIAL IV SCH; +HYDR-83 PO; +IOHEXOL 350 MG/ML 100 ML (OMNIPAQUE 350) VIAL IV ONE; +NS 100 ML (IVPB) BAG IV ONE
[2019-12-09] MEDS: CATHETER FLUSH 10 ML SYR IV PRN ×2 (12:06→12:36)
--- NOTE | 2019-12-09 13:10 | Diagnostic Imaging Report ---
PROCEDURE: CT chest and abdomen with contrast. TECHNIQUE: Multiple contiguous axial images were obtained through the chest and abdomen after the administration of intravenous contrast. Auto Exposure Controls were utilized during the CT exam to meet ALARA standards for radiation dose reduction. INDICATION: Esophageal cancer with metastases. Comparison is made with prior CT chest from 10/01/2019. Comparison is also made with prior PET/CT study from 10/12/2019. CT CHEST: A left chest wall port has the tip within the SVC. No axillary lymphadenopathy is detected. Enlarged lymph nodes in the high right paratracheal location have decreased in size. Largest node measures 13 mm x 9 mm compared with 14 mm x 10 mm on prior. The esophagus is diffusely fluid-filled. There is thickening and probable mass involving the distal esophagus consistent with patient's known esophageal carcinoma. This is similar to prior exam. No hilar lymphadenopathy is detected. No pericardial or pleural fluid is identified. Parenchymal evaluation does show some groundglass infiltrates in the right upper lobe, new since prior CT. A slightly spiculated density is identified in the medial and posterior left lower lobe measuring 7 mm. This was barely visible on prior exam. No other pulmonary parenchymal masses are detected. IMPRESSION: 1. Improvement in right paratracheal upper mediastinal lymphadenopathy when compared with 10/01/2019. Distal esophageal thickening and mass is stable. 2. Development of groundglass airspace infiltrates right upper lobe, likely on an infectious/inflammatory basis. 3. 7 mm spiculated density in the left lower lobe, new or increasing when compared with CT from [address] ABDOMEN: Low-density mass in the dome of the right lobe of the liver appears larger at 2.6 cm compared with approximately 2.0 cm on prior. A peripheral enhancing lesion in the right lobe measures 18 mm compared with 25 mm on prior. No new liver mass is detected. Gallbladder is surgically absent. Pancreas and spleen are unremarkable. A right adrenal mass measures 2.1 x 1.9 cm compared with 1.9 x 1.7 cm on prior. Left adrenal mass measures 1.8 x 2.2 cm. This compares to 1.8 x 1.9 cm when measured by the same technique on prior exam. The enlarged lymph nodes adjacent to the GE junction on prior study have significantly reduced in size and are now barely visible. Central retroperitoneum is unremarkable. Aorta is non-aneurysmal. Kidneys are unremarkable. The bowel loops are normal caliber. There is no ascites. IMPRESSION: 1. Mixed findings in the abdomen. There is some enlargement to right lobe liver mass as well as decrease in size of the right lobe liver mass when compared with prior CT. Adrenal lesions appear to be fairly similar bilaterally. The lymphadenopathy in the upper abdomen near the GE junction has significantly improved since prior exam. Dictated by: Dictated on workstation # [id number]
--- NOTE | 2019-12-09 15:39 | Diagnostic Imaging Report ---
INDICATION: Esophageal carcinoma. EXAMINATION: Patient was administered 24.8 mCi technetium 99m MDP intravenously and whole-body imaging was performed after 3 hour delay. COMPARISON: No prior bone scan is available for comparison. Comparison is made with CT study performed earlier the same day. FINDINGS: There is normal uptake of activity by the axial and appendicular skeleton. There is uptake by both kidneys with excretion to the urinary bladder. There is some contaminant noted in the lateral aspect of the right chest. There is a focus of abnormal uptake involving left approximately 8th rib near the articulation with the vertebral body. No definite correlate on the CT is identified. No other suspicious foci are identified. There are postsurgical changes involving the left knee. IMPRESSION: Solitary focus of increased uptake involving the left posterior approximately 8th rib near the articulation with the vertebral body. A solitary metastasis cannot be entirely excluded. Continued follow-up is recommended. Dictated by: Dictated on workstation # [id number]
== END ==
LOC: CARD 11:54
PROVIDERS: ATTEND Nurse Practitioner Adult Health
DX: C15.5 Malignant neoplasm of lower third of esophagus (principal); C79.51 Secondary malignant neoplasm of bone; C78.7 Secondary malignant neoplasm of liver and intrahepatic bile duct; R91.8 Other nonspecific abnormal finding of lung field
CPT/HCPCS: 71260; 74160; 78306; A9503

== ENCOUNTER 2020-01-04 07:55 | Outpatient (RCR) | payer MEDICARE, OTHER ==
[2019-10-07 11:22] LABS: BASOPHILS % (AUTO) 1 % (0-10); EOSINOPHILS # (AUTO) 0.2 10^3/uL (0.0-0.3); EOSINOPHILS % (AUTO) 2 % (0-10); HEMATOCRIT 47 % (40-54); HEMOGLOBIN 15.5 G/DL (13.3-17.7); LYMPHOCYTES # (AUTO) 1.1 X 10^3 (1.0-4.0); LYMPHOCYTES % (AUTO) 13 % (12-44); MEAN CORPUSCULAR HEMOGLOBIN 30 PG (25-34); MEAN CORPUSCULAR HGB CONC 33 G/DL (32-36); MEAN CORPUSCULAR VOLUME 90 FL (80-99); MEAN PLATELET VOLUME 11.6 FL (7.4-10.4); MONOCYTES # (AUTO) 0.6 X 10^3 (0.0-1.0); MONOCYTES % (AUTO) 8 % (0-12); NEUTROPHILS # (AUTO) 6.2 X 10^3 (1.8-7.8); NEUTROPHILS % (AUTO) 77 % (42-75); PLATELET COUNT 206 10^3/uL (130-400); RED CELL DISTRIBUTION WIDTH 14.1 % (10.0-14.5)
[2019-10-07 11:40] LABS: ALANINE AMINOTRANSFERASE 23 U/L (0-55); ALBUMIN 4.3 GM/DL (3.2-4.5); ALKALINE PHOSPHATASE 74 U/L (40-136); BILIRUBIN,TOTAL 0.6 MG/DL (0.1-1.0); BUN/CREATININE RATIO 27; CALCIUM 10.1 MG/DL (8.5-10.1); CARBON DIOXIDE 20 MMOL/L (21-32); CHLORIDE 105 MMOL/L (98-107); CREATININE SERUM 0.94 MG/DL (0.60-1.30); GFR ESTIMATED > 60; GLUCOSE 102 MG/DL (70-105); POTASSIUM 4.2 MMOL/L (3.6-5.0); SODIUM 140 MMOL/L (135-145); TOTAL PROTEIN 7.8 GM/DL (6.4-8.2)
[2019-10-27 11:34] LABS: BASOPHILS % (AUTO) 0 % (0-10); EOSINOPHILS # (AUTO) 0.2 10^3/uL (0.0-0.3); EOSINOPHILS % (AUTO) 3 % (0-10); HEMATOCRIT 44 % (40-54); HEMOGLOBIN 14.8 G/DL (13.3-17.7); LYMPHOCYTES # (AUTO) 1.7 X 10^3 (1.0-4.0); LYMPHOCYTES % (AUTO) 20 % (12-44); MEAN CORPUSCULAR HEMOGLOBIN 30 PG (25-34); MEAN CORPUSCULAR HGB CONC 33 G/DL (32-36); MEAN CORPUSCULAR VOLUME 90 FL (80-99); MEAN PLATELET VOLUME 12.3 FL (7.4-10.4); MONOCYTES # (AUTO) 0.6 X 10^3 (0.0-1.0); MONOCYTES % (AUTO) 7 % (0-12); NEUTROPHILS # (AUTO) 5.7 X 10^3 (1.8-7.8); NEUTROPHILS % (AUTO) 70 % (42-75); PLATELET COUNT 190 10^3/uL (130-400); RED CELL DISTRIBUTION WIDTH 13.6 % (10.0-14.5); WHITE BLOOD COUNT 8.2 10^3/uL (4.3-11.0)
[2019-10-27 11:58] LABS: BUN/CREATININE RATIO 33; CALCIUM 9.5 MG/DL (8.5-10.1); CARBON DIOXIDE 27 MMOL/L (21-32); CHLORIDE 101 MMOL/L (98-107); CREATININE SERUM 0.91 MG/DL (0.60-1.30); GFR ESTIMATED > 60; GLUCOSE 127 MG/DL (70-105); POTASSIUM 3.7 MMOL/L (3.6-5.0); SODIUM 138 MMOL/L (135-145)
[2019-11-03 11:20] LABS: BASOPHILS # (AUTO) 0.1 10^3/uL (0.0-0.1); BASOPHILS % (AUTO) 1 % (0-10); EOSINOPHILS # (AUTO) 0.1 10^3/uL (0.0-0.3); EOSINOPHILS % (AUTO) 2 % (0-10); HEMATOCRIT 43 % (40-54); HEMOGLOBIN 14.3 G/DL (13.3-17.7); LYMPHOCYTES # (AUTO) 1.8 X 10^3 (1.0-4.0); LYMPHOCYTES % (AUTO) 20 % (12-44); MEAN CORPUSCULAR HEMOGLOBIN 30 PG (25-34); MEAN CORPUSCULAR HGB CONC 33 G/DL (32-36); MEAN CORPUSCULAR VOLUME 91 FL (80-99); MEAN PLATELET VOLUME 11.9 FL (7.4-10.4); MONOCYTES # (AUTO) 1.1 X 10^3 (0.0-1.0); MONOCYTES % (AUTO) 13 % (0-12); NEUTROPHILS # (AUTO) 5.8 X 10^3 (1.8-7.8); NEUTROPHILS % (AUTO) 65 % (42-75); PLATELET COUNT 155 10^3/uL (130-400); RED CELL DISTRIBUTION WIDTH 14.1 % (10.0-14.5); WHITE BLOOD COUNT 8.9 10^3/uL (4.3-11.0)
[2019-11-03 11:41] LABS: ALANINE AMINOTRANSFERASE 68 U/L (0-55); ALBUMIN 3.9 GM/DL (3.2-4.5); ALKALINE PHOSPHATASE 87 U/L (40-136); BILIRUBIN,TOTAL 0.5 MG/DL (0.1-1.0); BUN/CREATININE RATIO 40; CALCIUM 9.1 MG/DL (8.5-10.1); CARBON DIOXIDE 29 MMOL/L (21-32); CHLORIDE 104 MMOL/L (98-107); CREATININE SERUM 0.83 MG/DL (0.60-1.30); GFR ESTIMATED > 60; GLUCOSE 71 MG/DL (70-105); MAGNESIUM 2.5 MG/DL (1.6-2.4); POTASSIUM 4.3 MMOL/L (3.6-5.0); SODIUM 140 MMOL/L (135-145); TOTAL PROTEIN 6.8 GM/DL (6.4-8.2)
[2019-11-10 09:53] LABS: BASOPHILS % (AUTO) 1 % (0-10); EOSINOPHILS # (AUTO) 0.2 10^3/uL (0.0-0.3); EOSINOPHILS % (AUTO) 3 % (0-10); HEMATOCRIT 43 % (40-54); HEMOGLOBIN 14.6 G/DL (13.3-17.7); LYMPHOCYTES # (AUTO) 1.7 X 10^3 (1.0-4.0); LYMPHOCYTES % (AUTO) 24 % (12-44); MEAN CORPUSCULAR HEMOGLOBIN 31 PG (25-34); MEAN CORPUSCULAR HGB CONC 34 G/DL (32-36); MEAN CORPUSCULAR VOLUME 90 FL (80-99); MEAN PLATELET VOLUME 11.9 FL (7.4-10.4); MONOCYTES # (AUTO) 0.7 X 10^3 (0.0-1.0); MONOCYTES % (AUTO) 10 % (0-12); NEUTROPHILS # (AUTO) 4.4 X 10^3 (1.8-7.8); NEUTROPHILS % (AUTO) 62 % (42-75); PLATELET COUNT 188 10^3/uL (130-400); RED CELL DISTRIBUTION WIDTH 14.1 % (10.0-14.5)
[2019-11-10 10:14] LABS: BUN/CREATININE RATIO 43; CALCIUM 8.4 MG/DL (8.5-10.1); CARBON DIOXIDE 22 MMOL/L (21-32); CHLORIDE 107 MMOL/L (98-107); CREATININE SERUM 0.79 MG/DL (0.60-1.30); GFR ESTIMATED > 60; GLUCOSE 95 MG/DL (70-105); POTASSIUM 4.5 MMOL/L (3.6-5.0); SODIUM 139 MMOL/L (135-145)
[2019-11-16 10:03] LABS: BASOPHILS % (AUTO) 0 % (0-10); EOSINOPHILS # (AUTO) 0.1 10^3/uL (0.0-0.3); EOSINOPHILS % (AUTO) 2 % (0-10); HEMATOCRIT 43 % (40-54); HEMOGLOBIN 14.4 G/DL (13.3-17.7); LYMPHOCYTES # (AUTO) 1.2 X 10^3 (1.0-4.0); LYMPHOCYTES % (AUTO) 14 % (12-44); MEAN CORPUSCULAR HEMOGLOBIN 31 PG (25-34); MEAN CORPUSCULAR HGB CONC 33 G/DL (32-36); MEAN CORPUSCULAR VOLUME 94 FL (80-99); MEAN PLATELET VOLUME 11.7 FL (7.4-10.4); MONOCYTES # (AUTO) 0.4 X 10^3 (0.0-1.0); MONOCYTES % (AUTO) 4 % (0-12); NEUTROPHILS # (AUTO) 6.7 X 10^3 (1.8-7.8); NEUTROPHILS % (AUTO) 80 % (42-75); PLATELET COUNT 137 10^3/uL (130-400); WHITE BLOOD COUNT 8.4 10^3/uL (4.3-11.0)
[2019-11-16 10:20] LABS: ALANINE AMINOTRANSFERASE 122 U/L (0-55); ALKALINE PHOSPHATASE 104 U/L (40-136); BILIRUBIN,TOTAL 0.8 MG/DL (0.1-1.0); BUN/CREATININE RATIO 36; CALCIUM 9.3 MG/DL (8.5-10.1); CARBON DIOXIDE 26 MMOL/L (21-32); CHLORIDE 106 MMOL/L (98-107); CREATININE SERUM 0.97 MG/DL (0.60-1.30); GFR ESTIMATED > 60; GLUCOSE 146 MG/DL (70-105); MAGNESIUM 2.4 MG/DL (1.6-2.4); SODIUM 141 MMOL/L (135-145); TOTAL PROTEIN 6.8 GM/DL (6.4-8.2)
[2019-11-23 08:59] LABS: BASOPHILS % (AUTO) 1 % (0-10); EOSINOPHILS # (AUTO) 0.3 10^3/uL (0.0-0.3); EOSINOPHILS % (AUTO) 5 % (0-10); HEMATOCRIT 43 % (40-54); HEMOGLOBIN 14.4 G/DL (13.3-17.7); LYMPHOCYTES # (AUTO) 1.5 X 10^3 (1.0-4.0); LYMPHOCYTES % (AUTO) 25 % (12-44); MEAN CORPUSCULAR HEMOGLOBIN 30 PG (25-34); MEAN CORPUSCULAR HGB CONC 34 G/DL (32-36); MEAN CORPUSCULAR VOLUME 90 FL (80-99); MEAN PLATELET VOLUME 11.6 FL (7.4-10.4); MONOCYTES # (AUTO) 0.8 X 10^3 (0.0-1.0); MONOCYTES % (AUTO) 13 % (0-12); NEUTROPHILS # (AUTO) 3.3 X 10^3 (1.8-7.8); NEUTROPHILS % (AUTO) 56 % (42-75); PLATELET COUNT 177 10^3/uL (130-400); RED CELL DISTRIBUTION WIDTH 14.6 % (10.0-14.5); WHITE BLOOD COUNT 5.9 10^3/uL (4.3-11.0)
[2019-11-23 09:30] LABS: BUN/CREATININE RATIO 33; CALCIUM 8.8 MG/DL (8.5-10.1); CARBON DIOXIDE 22 MMOL/L (21-32); CHLORIDE 103 MMOL/L (98-107); CREATININE SERUM 0.93 MG/DL (0.60-1.30); GFR ESTIMATED > 60; GLUCOSE 97 MG/DL (70-105); POTASSIUM 3.8 MMOL/L (3.6-5.0); SODIUM 137 MMOL/L (135-145)
[2019-12-01 10:42] LABS: BASOPHILS # (AUTO) 0.1 10^3/uL (0.0-0.1); BASOPHILS % (AUTO) 1 % (0-10); EOSINOPHILS # (AUTO) 0.1 10^3/uL (0.0-0.3); EOSINOPHILS % (AUTO) 2 % (0-10); HEMATOCRIT 45 % (40-54); HEMOGLOBIN 14.8 G/DL (13.3-17.7); LYMPHOCYTES # (AUTO) 1.6 X 10^3 (1.0-4.0); LYMPHOCYTES % (AUTO) 20 % (12-44); MEAN CORPUSCULAR HEMOGLOBIN 31 PG (25-34); MEAN CORPUSCULAR HGB CONC 33 G/DL (32-36); MEAN CORPUSCULAR VOLUME 94 FL (80-99); MEAN PLATELET VOLUME 11.5 FL (7.4-10.4); MONOCYTES % (AUTO) 13 % (0-12); NEUTROPHILS # (AUTO) 5.1 X 10^3 (1.8-7.8); NEUTROPHILS % (AUTO) 64 % (42-75); PLATELET COUNT 163 10^3/uL (130-400); RED CELL DISTRIBUTION WIDTH 15.2 % (10.0-14.5); WHITE BLOOD COUNT 7.9 10^3/uL (4.3-11.0)
[2019-12-01 10:59] LABS: ALANINE AMINOTRANSFERASE 160 U/L (0-55); ALKALINE PHOSPHATASE 168 U/L (40-136); BILIRUBIN,TOTAL 0.7 MG/DL (0.1-1.0); BUN/CREATININE RATIO 38; CALCIUM 8.6 MG/DL (8.5-10.1); CARBON DIOXIDE 26 MMOL/L (21-32); CHLORIDE 104 MMOL/L (98-107); CREATININE SERUM 0.85 MG/DL (0.60-1.30); GFR ESTIMATED > 60; GLUCOSE 87 MG/DL (70-105); MAGNESIUM 2.9 MG/DL (1.6-2.4); POTASSIUM 4.3 MMOL/L (3.6-5.0); SODIUM 137 MMOL/L (135-145)
[2019-12-01 11:57] LABS: SMEAR SCAN COMMENT YES
[2019-12-07 11:22] LABS: BASOPHILS # (AUTO) 0.1 10^3/uL (0.0-0.1); BASOPHILS % (AUTO) 1 % (0-10); EOSINOPHILS # (AUTO) 0.2 10^3/uL (0.0-0.3); EOSINOPHILS % (AUTO) 3 % (0-10); HEMATOCRIT 42 % (40-54); HEMOGLOBIN 14.5 G/DL (13.3-17.7); LYMPHOCYTES # (AUTO) 1.6 X 10^3 (1.0-4.0); LYMPHOCYTES % (AUTO) 21 % (12-44); MEAN CORPUSCULAR HEMOGLOBIN 31 PG (25-34); MEAN CORPUSCULAR HGB CONC 35 G/DL (32-36); MEAN CORPUSCULAR VOLUME 90 FL (80-99); MEAN PLATELET VOLUME 12.1 FL (7.4-10.4); MONOCYTES # (AUTO) 1.1 X 10^3 (0.0-1.0); MONOCYTES % (AUTO) 14 % (0-12); NEUTROPHILS # (AUTO) 4.9 X 10^3 (1.8-7.8); NEUTROPHILS % (AUTO) 62 % (42-75); PLATELET COUNT 202 10^3/uL (130-400); RED CELL DISTRIBUTION WIDTH 15.2 % (10.0-14.5); WHITE BLOOD COUNT 7.9 10^3/uL (4.3-11.0)
[2019-12-07 11:45] LABS: BUN/CREATININE RATIO 37; CALCIUM 8.2 MG/DL (8.5-10.1); CARBON DIOXIDE 21 MMOL/L (21-32); CHLORIDE 105 MMOL/L (98-107); CREATININE SERUM 0.78 MG/DL (0.60-1.30); GFR ESTIMATED > 60; GLUCOSE 105 MG/DL (70-105); SODIUM 136 MMOL/L (135-145)
[2019-12-15 10:43] LABS: BASOPHILS # (AUTO) 0.1 10^3/uL (0.0-0.1); BASOPHILS % (AUTO) 1 % (0-10); EOSINOPHILS # (AUTO) 0.1 10^3/uL (0.0-0.3); EOSINOPHILS % (AUTO) 1 % (0-10); HEMATOCRIT 42 % (40-54); HEMOGLOBIN 14.1 G/DL (13.3-17.7); LYMPHOCYTES # (AUTO) 1.9 X 10^3 (1.0-4.0); LYMPHOCYTES % (AUTO) 18 % (12-44); MEAN CORPUSCULAR HEMOGLOBIN 31 PG (25-34); MEAN CORPUSCULAR HGB CONC 34 G/DL (32-36); MEAN CORPUSCULAR VOLUME 93 FL (80-99); MEAN PLATELET VOLUME 11.3 FL (7.4-10.4); MONOCYTES # (AUTO) 1.2 X 10^3 (0.0-1.0); MONOCYTES % (AUTO) 11 % (0-12); NEUTROPHILS # (AUTO) 7.1 X 10^3 (1.8-7.8); NEUTROPHILS % (AUTO) 69 % (42-75); PLATELET COUNT 192 10^3/uL (130-400); RED CELL DISTRIBUTION WIDTH 16.3 % (10.0-14.5); WHITE BLOOD COUNT 10.3 10^3/uL (4.3-11.0)
[2019-12-15 11:01] LABS: ALANINE AMINOTRANSFERASE 116 U/L (0-55); ALBUMIN 3.9 GM/DL (3.2-4.5); ALKALINE PHOSPHATASE 132 U/L (40-136); BILIRUBIN,TOTAL 0.6 MG/DL (0.1-1.0); BUN/CREATININE RATIO 39; CALCIUM 8.8 MG/DL (8.5-10.1); CARBON DIOXIDE 26 MMOL/L (21-32); CHLORIDE 103 MMOL/L (98-107); CREATININE SERUM 0.79 MG/DL (0.60-1.30); GFR ESTIMATED > 60; GLUCOSE 71 MG/DL (70-105); MAGNESIUM 2.5 MG/DL (1.6-2.4); SODIUM 139 MMOL/L (135-145); TOTAL PROTEIN 6.8 GM/DL (6.4-8.2)
[2019-12-21 09:30] LABS: BASOPHILS # (AUTO) 0.1 10^3/uL (0.0-0.1); BASOPHILS % (AUTO) 1 % (0-10); EOSINOPHILS # (AUTO) 0.1 10^3/uL (0.0-0.3); EOSINOPHILS % (AUTO) 2 % (0-10); HEMATOCRIT 41 % (40-54); HEMOGLOBIN 13.9 G/DL (13.3-17.7); LYMPHOCYTES # (AUTO) 1.5 X 10^3 (1.0-4.0); LYMPHOCYTES % (AUTO) 28 % (12-44); MEAN CORPUSCULAR HEMOGLOBIN 31 PG (25-34); MEAN CORPUSCULAR HGB CONC 34 G/DL (32-36); MEAN CORPUSCULAR VOLUME 92 FL (80-99); MEAN PLATELET VOLUME 11.9 FL (7.4-10.4); MONOCYTES # (AUTO) 0.4 X 10^3 (0.0-1.0); MONOCYTES % (AUTO) 8 % (0-12); NEUTROPHILS # (AUTO) 3.2 X 10^3 (1.8-7.8); NEUTROPHILS % (AUTO) 62 % (42-75); PLATELET COUNT 174 10^3/uL (130-400); RED CELL DISTRIBUTION WIDTH 16.1 % (10.0-14.5); WHITE BLOOD COUNT 5.2 10^3/uL (4.3-11.0)
[2019-12-21 09:54] LABS: BUN/CREATININE RATIO 36; CALCIUM 8.2 MG/DL (8.5-10.1); CARBON DIOXIDE 20 MMOL/L (21-32); CHLORIDE 104 MMOL/L (98-107); CREATININE SERUM 0.81 MG/DL (0.60-1.30); GFR ESTIMATED > 60; GLUCOSE 196 MG/DL (70-105); POTASSIUM 4.3 MMOL/L (3.6-5.0); SODIUM 134 MMOL/L (135-145)
[2019-12-28 09:44] LABS: BASOPHILS % (AUTO) 0 % (0-10); EOSINOPHILS % (AUTO) 1 % (0-10); HEMATOCRIT 42 % (40-54); LYMPHOCYTES # (AUTO) 1.3 X 10^3 (1.0-4.0); LYMPHOCYTES % (AUTO) 17 % (12-44); MEAN CORPUSCULAR HEMOGLOBIN 32 PG (25-34); MEAN CORPUSCULAR HGB CONC 33 G/DL (32-36); MEAN CORPUSCULAR VOLUME 95 FL (80-99); MEAN PLATELET VOLUME 11.2 FL (7.4-10.4); MONOCYTES # (AUTO) 0.4 X 10^3 (0.0-1.0); MONOCYTES % (AUTO) 6 % (0-12); NEUTROPHILS % (AUTO) 77 % (42-75); PLATELET COUNT 171 10^3/uL (130-400); WHITE BLOOD COUNT 7.8 10^3/uL (4.3-11.0)
[2019-12-28 10:10] LABS: ALANINE AMINOTRANSFERASE 342 U/L (0-55); ALBUMIN 3.8 GM/DL (3.2-4.5); ALKALINE PHOSPHATASE 257 U/L (40-136); BUN/CREATININE RATIO 36; CALCIUM 8.8 MG/DL (8.5-10.1); CARBON DIOXIDE 23 MMOL/L (21-32); CHLORIDE 105 MMOL/L (98-107); CREATININE SERUM 0.85 MG/DL (0.60-1.30); GFR ESTIMATED > 60; GLUCOSE 169 MG/DL (70-105); MAGNESIUM 2.7 MG/DL (1.6-2.4); POTASSIUM 3.7 MMOL/L (3.6-5.0); SODIUM 139 MMOL/L (135-145); TOTAL PROTEIN 6.8 GM/DL (6.4-8.2)
[~2020-01-04] VITALS: Ht 174 cm; Wt 78.0 kg
[~2020-01-04 07:55] MED LIST changes: -BARIUM SUSPENSION 2.1% (VANILLA SILQ) 450 ML PO ONE; +D5W 500 ML IV (CANCER CTR) 500 ML IV SCH; +FOSAPREPITANT (CANCER CENTER) 150 MG in NS (IVPB) CANCER CENTER ONLY 150 ML IV SCH; -HOLD METFORMIN - RECEIVED CONTRAST 20 ML VIAL IV SCH; +HYDR-3812 PO; -HYDR-83 PO; -IOHEXOL 350 MG/ML 100 ML (OMNIPAQUE 350) VIAL IV ONE; +LEUCOVORIN CALCIUM 500 MG, LEUCOVORIN CALCIUM 100 MG in D5W 250 ML IVPB (CANCER CTR) 25... IV SCH; -NS 100 ML (IVPB) BAG IV ONE; +OXALIPLATIN 100 MG, OXALIPLATIN (GENERIC) 20 MG in D5W 250 ML IVPB (CANCER CTR) 250 ML IV SCH; +OXALIPLATIN 100 MG, OXALIPLATIN (GENERIC) 30 MG in D5W 250 ML IVPB (CANCER CTR) 250 ML IV SCH; +PALONOSETRON HCL 0.25 MG, DEXAMETHASONE INJECTION 10 MG in NS (IVPB) CANCER CENTER 50 ML IV SCH; +ZOLEDRONIC ACID (CANCER CTR) 4 MG in NS (IVPB) CANCER CENTER 100 ML IV SCH
[2020-01-04 10:12] LABS: BASOPHILS # (AUTO) 0.1 10^3/uL (0.0-0.1); BASOPHILS % (AUTO) 1 % (0-10); EOSINOPHILS # (AUTO) 0.1 10^3/uL (0.0-0.3); EOSINOPHILS % (AUTO) 1 % (0-10); HEMATOCRIT 41 % (40-54); HEMOGLOBIN 13.9 G/DL (13.3-17.7); LYMPHOCYTES # (AUTO) 1.6 X 10^3 (1.0-4.0); LYMPHOCYTES % (AUTO) 24 % (12-44); MEAN CORPUSCULAR HEMOGLOBIN 32 PG (25-34); MEAN CORPUSCULAR HGB CONC 34 G/DL (32-36); MEAN CORPUSCULAR VOLUME 94 FL (80-99); MEAN PLATELET VOLUME 11.7 FL (7.4-10.4); MONOCYTES # (AUTO) 0.5 X 10^3 (0.0-1.0); MONOCYTES % (AUTO) 7 % (0-12); NEUTROPHILS # (AUTO) 4.4 X 10^3 (1.8-7.8); NEUTROPHILS % (AUTO) 67 % (42-75); PLATELET COUNT 180 10^3/uL (130-400); RED CELL DISTRIBUTION WIDTH 17.3 % (10.0-14.5); WHITE BLOOD COUNT 6.5 10^3/uL (4.3-11.0)
[2020-01-04 10:30] LABS: ALANINE AMINOTRANSFERASE 132 U/L (0-55); ALBUMIN 3.8 GM/DL (3.2-4.5); ALKALINE PHOSPHATASE 150 U/L (40-136); BILIRUBIN,TOTAL 0.5 MG/DL (0.1-1.0); BUN/CREATININE RATIO 33; CALCIUM 8.6 MG/DL (8.5-10.1); CARBON DIOXIDE 20 MMOL/L (21-32); CHLORIDE 106 MMOL/L (98-107); CREATININE SERUM 0.86 MG/DL (0.60-1.30); GFR ESTIMATED > 60; GLUCOSE 177 MG/DL (70-105); MAGNESIUM 2.2 MG/DL (1.6-2.4); POTASSIUM 4.2 MMOL/L (3.6-5.0); SODIUM 136 MMOL/L (135-145); TOTAL PROTEIN 6.7 GM/DL (6.4-8.2)
== END 2020-01-05 | disposition home or self-care (01) ==
LOC: ONC 07:55
PROVIDERS: ATTEND Internal Medicine Hematology & Oncology
DX: Z51.11 Encounter for antineoplastic chemotherapy (principal); C15.5 Malignant neoplasm of lower third of esophagus; K76.9 Liver disease, unspecified; D35.01 Benign neoplasm of right adrenal gland; J38.01 Paralysis of vocal cords and larynx, unilateral; R59.0 Localized enlarged lymph nodes; E27.8 Other specified disorders of adrenal gland; M19.90 Unspecified osteoarthritis, unspecified site; Z98.890 Other specified postprocedural states; Z90.49 Acquired absence of other specified parts of digestive tract; Z96.652 Presence of left artificial knee joint
CPT/HCPCS: 80053; 82378; 85025; G0463; 36591; 80048; 83735; 96365; 96367; 96368; 96375; 96411; 96413; 96416; 99213; 99214

== ENCOUNTER → 2020-02-03 | Outpatient (CLI) | payer MEDICARE, OTHER ==
[~2020-02-03] MED LIST changes: +CATHETER FLUSH 10 ML SYR IV PRN; -D5W 500 ML IV (CANCER CTR) 500 ML IV SCH; -FOSAPREPITANT (CANCER CENTER) 150 MG in NS (IVPB) CANCER CENTER ONLY 150 ML IV SCH; +HOLD METFORMIN - RECEIVED CONTRAST 20 ML VIAL IV SCH; +IOHEXOL 350 MG/ML 100 ML (OMNIPAQUE 350) VIAL IV ONE; -LEUCOVORIN CALCIUM 500 MG, LEUCOVORIN CALCIUM 100 MG in D5W 250 ML IVPB (CANCER CTR) 25... IV SCH; +NS 100 ML (IVPB) BAG IV ONE; -OXALIPLATIN 100 MG, OXALIPLATIN (GENERIC) 20 MG in D5W 250 ML IVPB (CANCER CTR) 250 ML IV SCH; -OXALIPLATIN 100 MG, OXALIPLATIN (GENERIC) 30 MG in D5W 250 ML IVPB (CANCER CTR) 250 ML IV SCH; -PALONOSETRON HCL 0.25 MG, DEXAMETHASONE INJECTION 10 MG in NS (IVPB) CANCER CENTER 50 ML IV SCH; -ZOLEDRONIC ACID (CANCER CTR) 4 MG in NS (IVPB) CANCER CENTER 100 ML IV SCH
[2020-02-03] MEDS: CATHETER FLUSH 10 ML SYR IV PRN ×2 (12:26→12:52)
--- NOTE | 2020-02-03 13:09 | Diagnostic Imaging Report ---
EXAMINATION: CT Chest and Abdomen with intravenous contrast. TECHNIQUE: Multiple contiguous axial images were obtained through the chest and abdomen after the uneventful administration of intravenous contrast. All CT scans use one or more of the following dose optimizing techniques: automated exposure control, MA and/or KvP adjustment based on a patient size and exam type, or iterative reconstruction. HISTORY: Esophageal cancer. COMPARISON: 12/09/2019. FINDINGS: Previously seen patchy areas of groundglass in the right upper lobe have improved with a small area of peripheral linear consolidation remaining which may represent atelectasis. No pleural effusion. No pneumothorax. The left lower lobe nodule measuring 7 mm on the prior exam now measures 3.5 x 2.3 cm. There is no axillary or supraclavicular lymphadenopathy. There is no mediastinal lymphadenopathy. Left port catheter tip terminates in the superior vena cava. Heart size is normal. There are mild coronary artery calcifications. No pericardial effusion. Aorta is normal in caliber. There is wall thickening of the distal esophagus with luminal narrowing and upstream dilation. This appears similar to prior exam. The segment 4A liver lesion has increased in size measuring 5.2 cm, previously 2.6 cm. There is a new 2.6 cm segment three liver lesion. There are approximately five additional liver lesions which are new from prior exam and measure between 2 cm and 3 cm. There is no biliary ductal dilation. Gallbladder is surgically absent. Pancreas is normal. Spleen is normal. A 17 x 10 mm left adrenal nodule previously measured 15 x 10 mm. A 20 x 23 mm right adrenal nodule previously measured 19 x 21 mm. The kidneys are normal. There is no hydronephrosis. Visualized bowel is normal in caliber without obstruction or inflammation. Percutaneous gastrostomy tube is present. No free fluid or air. No abdominal lymphadenopathy. Aorta is normal in caliber without aneurysm. There are no suspicious osseous lesions. There is a stable mild L1 compression fracture. IMPRESSION: 1. Marked increase in size of the left lower lobe pulmonary nodule and increase in size of liver masses with new liver masses present as well. 2. Adrenal nodules are unchanged and distal esophageal thickening is unchanged. Dictated by: Dictated on workstation # [id number]
--- NOTE | 2020-02-03 18:14 | Diagnostic Imaging Report ---
INDICATION: Esophageal cancer. TECHNIQUE: The patient was administered 26.6 mCi technetium 99m MDP intravenously and whole-body imaging was performed after a 3 hour delay. CORRELATION is made with prior whole body bone scan from 12/09/2019. Uptake of activity by the axial and appendicular skeleton is noted. There is uptake by the kidneys with excretion into the urinary bladder. The solitary focus of activity previously described involving approximately the left 8th rib is unchanged. There is also an area of increased uptake involving the proximal right humerus, new since the prior exam. Tiny subtle area of activity in the intertrochanteric left hip is also noted, minimally more prominent than prior exam. IMPRESSION: New small focus of uptake involving the right proximal humerus. There is a tiny lesion in the proximal left hip, as well. Small osseous metastases cannot be entirely excluded. Dictated by: Dictated on workstation # [id number]
== END ==
LOC: CARD 12:00
PROVIDERS: ATTEND Nurse Practitioner Adult Health
DX: C15.5 Malignant neoplasm of lower third of esophagus (principal); C79.51 Secondary malignant neoplasm of bone; C78.7 Secondary malignant neoplasm of liver and intrahepatic bile duct; E27.8 Other specified disorders of adrenal gland; R91.1 Solitary pulmonary nodule; Z93.1 Gastrostomy status; Z95.828 Presence of other vascular implants and grafts; Z90.49 Acquired absence of other specified parts of digestive tract
CPT/HCPCS: 71260; 74160; 78306; A9503

== ENCOUNTER → 2020-04-10 | Outpatient (RCR) | payer MEDICARE, OTHER ==
[2020-01-11 09:32] LABS: BASOPHILS # (AUTO) 0.1 10^3/uL (0.0-0.1); BASOPHILS % (AUTO) 1 % (0-10); EOSINOPHILS # (AUTO) 0.1 10^3/uL (0.0-0.3); EOSINOPHILS % (AUTO) 1 % (0-10); HEMATOCRIT 42 % (40-54); HEMOGLOBIN 13.8 G/DL (13.3-17.7); LYMPHOCYTES # (AUTO) 1.4 X 10^3 (1.0-4.0); LYMPHOCYTES % (AUTO) 20 % (12-44); MEAN CORPUSCULAR HEMOGLOBIN 32 PG (25-34); MEAN CORPUSCULAR HGB CONC 33 G/DL (32-36); MEAN CORPUSCULAR VOLUME 96 FL (80-99); MEAN PLATELET VOLUME 11.6 FL (7.4-10.4); MONOCYTES # (AUTO) 0.7 X 10^3 (0.0-1.0); MONOCYTES % (AUTO) 11 % (0-12); NEUTROPHILS # (AUTO) 4.5 X 10^3 (1.8-7.8); NEUTROPHILS % (AUTO) 67 % (42-75); PLATELET COUNT 156 10^3/uL (130-400); WHITE BLOOD COUNT 6.8 10^3/uL (4.3-11.0)
[2020-01-11 09:48] LABS: ALANINE AMINOTRANSFERASE 224 U/L (0-55); ALBUMIN 3.6 GM/DL (3.2-4.5); ALKALINE PHOSPHATASE 224 U/L (40-136); BILIRUBIN,TOTAL 0.9 MG/DL (0.1-1.0); BUN/CREATININE RATIO 31; CALCIUM 8.4 MG/DL (8.5-10.1); CARBON DIOXIDE 23 MMOL/L (21-32); CHLORIDE 106 MMOL/L (98-107); CREATININE SERUM 0.77 MG/DL (0.60-1.30); GFR ESTIMATED > 60; GLUCOSE 147 MG/DL (70-105); MAGNESIUM 2.3 MG/DL (1.6-2.4); SODIUM 138 MMOL/L (135-145); TOTAL PROTEIN 6.4 GM/DL (6.4-8.2)
[2020-01-18 09:52] LABS: BASOPHILS # (AUTO) 0.1 10^3/uL (0.0-0.1); BASOPHILS % (AUTO) 1 % (0-10); EOSINOPHILS % (AUTO) 1 % (0-10); HEMATOCRIT 41 % (40-54); HEMOGLOBIN 13.6 G/DL (13.3-17.7); LYMPHOCYTES # (AUTO) 1.4 X 10^3 (1.0-4.0); LYMPHOCYTES % (AUTO) 19 % (12-44); MEAN CORPUSCULAR HEMOGLOBIN 32 PG (25-34); MEAN CORPUSCULAR HGB CONC 33 G/DL (32-36); MEAN CORPUSCULAR VOLUME 95 FL (80-99); MEAN PLATELET VOLUME 11.7 FL (7.4-10.4); MONOCYTES % (AUTO) 12 % (0-12); NEUTROPHILS # (AUTO) 5.2 X 10^3 (1.8-7.8); NEUTROPHILS % (AUTO) 67 % (42-75); PLATELET COUNT 198 10^3/uL (130-400); WHITE BLOOD COUNT 7.7 10^3/uL (4.3-11.0)
[2020-01-18 10:12] LABS: BUN/CREATININE RATIO 33; CALCIUM 8.5 MG/DL (8.5-10.1); CARBON DIOXIDE 21 MMOL/L (21-32); CHLORIDE 106 MMOL/L (98-107); CREATININE SERUM 0.78 MG/DL (0.60-1.30); GFR ESTIMATED > 60; GLUCOSE 112 MG/DL (70-105); SODIUM 135 MMOL/L (135-145)
[2020-01-25 10:10] LABS: BASOPHILS # (AUTO) 0.1 10^3/uL (0.0-0.1); BASOPHILS % (AUTO) 1 % (0-10); EOSINOPHILS % (AUTO) 1 % (0-10); HEMATOCRIT 40 % (40-54); HEMOGLOBIN 13.2 G/DL (13.3-17.7); LYMPHOCYTES # (AUTO) 1.3 X 10^3 (1.0-4.0); LYMPHOCYTES % (AUTO) 15 % (12-44); MEAN CORPUSCULAR HEMOGLOBIN 32 PG (25-34); MEAN CORPUSCULAR HGB CONC 33 G/DL (32-36); MEAN CORPUSCULAR VOLUME 97 FL (80-99); MEAN PLATELET VOLUME 11.1 FL (7.4-10.4); MONOCYTES # (AUTO) 1.1 X 10^3 (0.0-1.0); MONOCYTES % (AUTO) 12 % (0-12); NEUTROPHILS # (AUTO) 6.2 X 10^3 (1.8-7.8); NEUTROPHILS % (AUTO) 71 % (42-75); PLATELET COUNT 200 10^3/uL (130-400); WHITE BLOOD COUNT 8.7 10^3/uL (4.3-11.0)
[2020-01-25 10:28] LABS: ALANINE AMINOTRANSFERASE 84 U/L (0-55); ALBUMIN 3.7 GM/DL (3.2-4.5); ALKALINE PHOSPHATASE 144 U/L (40-136); BILIRUBIN,TOTAL 0.6 MG/DL (0.1-1.0); BUN/CREATININE RATIO 31; CARBON DIOXIDE 25 MMOL/L (21-32); CHLORIDE 106 MMOL/L (98-107); CREATININE SERUM 0.78 MG/DL (0.60-1.30); GFR ESTIMATED > 60; GLUCOSE 98 MG/DL (70-105); MAGNESIUM 2.2 MG/DL (1.6-2.4); POTASSIUM 3.9 MMOL/L (3.6-5.0); SODIUM 139 MMOL/L (135-145); TOTAL PROTEIN 6.8 GM/DL (6.4-8.2)
[2020-02-01 10:00] LABS: BASOPHILS # (AUTO) 0.1 10^3/uL (0.0-0.1); BASOPHILS % (AUTO) 1 % (0-10); EOSINOPHILS # (AUTO) 0.1 10^3/uL (0.0-0.3); EOSINOPHILS % (AUTO) 1 % (0-10); HEMATOCRIT 40 % (40-54); HEMOGLOBIN 13.1 G/DL (13.3-17.7); LYMPHOCYTES # (AUTO) 1.3 X 10^3 (1.0-4.0); LYMPHOCYTES % (AUTO) 22 % (12-44); MEAN CORPUSCULAR HEMOGLOBIN 32 PG (25-34); MEAN CORPUSCULAR HGB CONC 33 G/DL (32-36); MEAN CORPUSCULAR VOLUME 97 FL (80-99); MEAN PLATELET VOLUME 11.3 FL (7.4-10.4); MONOCYTES # (AUTO) 0.7 X 10^3 (0.0-1.0); MONOCYTES % (AUTO) 12 % (0-12); NEUTROPHILS # (AUTO) 3.6 X 10^3 (1.8-7.8); NEUTROPHILS % (AUTO) 63 % (42-75); PLATELET COUNT 184 10^3/uL (130-400); WHITE BLOOD COUNT 5.7 10^3/uL (4.3-11.0)
[2020-02-01 10:25] LABS: BUN/CREATININE RATIO 31; CARBON DIOXIDE 21 MMOL/L (21-32); CHLORIDE 106 MMOL/L (98-107); CREATININE SERUM 0.78 MG/DL (0.60-1.30); GFR ESTIMATED > 60; GLUCOSE 149 MG/DL (70-105); SODIUM 137 MMOL/L (135-145)
[2020-02-08 09:52] LABS: BASOPHILS # (AUTO) 0.1 10^3/uL (0.0-0.1); BASOPHILS % (AUTO) 1 % (0-10); EOSINOPHILS % (AUTO) 0 % (0-10); HEMATOCRIT 38 % (40-54); HEMOGLOBIN 12.8 G/DL (13.3-17.7); LYMPHOCYTES # (AUTO) 1.3 X 10^3 (1.0-4.0); LYMPHOCYTES % (AUTO) 14 % (12-44); MEAN CORPUSCULAR HEMOGLOBIN 33 PG (25-34); MEAN CORPUSCULAR HGB CONC 34 G/DL (32-36); MEAN CORPUSCULAR VOLUME 97 FL (80-99); MEAN PLATELET VOLUME 11.9 FL (7.4-10.4); MONOCYTES # (AUTO) 0.9 X 10^3 (0.0-1.0); MONOCYTES % (AUTO) 10 % (0-12); NEUTROPHILS # (AUTO) 6.8 X 10^3 (1.8-7.8); NEUTROPHILS % (AUTO) 75 % (42-75); PLATELET COUNT 132 10^3/uL (130-400); WHITE BLOOD COUNT 9.1 10^3/uL (4.3-11.0)
[2020-02-08 10:16] LABS: ALANINE AMINOTRANSFERASE 50 U/L (0-55); ALBUMIN 3.8 GM/DL (3.2-4.5); ALKALINE PHOSPHATASE 138 U/L (40-136); BILIRUBIN,TOTAL 0.5 MG/DL (0.1-1.0); BUN/CREATININE RATIO 31; CALCIUM 9.2 MG/DL (8.5-10.1); CARBON DIOXIDE 24 MMOL/L (21-32); CHLORIDE 104 MMOL/L (98-107); CREATININE SERUM 0.77 MG/DL (0.60-1.30); GFR ESTIMATED > 60; GLUCOSE 120 MG/DL (70-105); MAGNESIUM 2.3 MG/DL (1.6-2.4); SODIUM 137 MMOL/L (135-145); TOTAL PROTEIN 6.8 GM/DL (6.4-8.2)
[2020-02-23 09:30] LABS: BASOPHILS % (AUTO) 0 % (0-10); EOSINOPHILS % (AUTO) 0 % (0-10); HEMATOCRIT 34 % (40-54); HEMOGLOBIN 10.9 G/DL (13.3-17.7); LYMPHOCYTES # (AUTO) 0.5 X 10^3 (1.0-4.0); LYMPHOCYTES % (AUTO) 7 % (12-44); MEAN CORPUSCULAR HEMOGLOBIN 32 PG (25-34); MEAN CORPUSCULAR HGB CONC 32 G/DL (32-36); MEAN CORPUSCULAR VOLUME 99 FL (80-99); MONOCYTES # (AUTO) 0.1 X 10^3 (0.0-1.0); MONOCYTES % (AUTO) 1 % (0-12); NEUTROPHILS # (AUTO) 6.5 X 10^3 (1.8-7.8); NEUTROPHILS % (AUTO) 92 % (42-75); PLATELET COUNT 187 10^3/uL (130-400); WHITE BLOOD COUNT 7.1 10^3/uL (4.3-11.0)
[2020-02-23 09:43] LABS: BUN/CREATININE RATIO 36; CALCIUM 8.7 MG/DL (8.5-10.1); CARBON DIOXIDE 21 MMOL/L (21-32); CHLORIDE 101 MMOL/L (98-107); CREATININE SERUM 0.83 MG/DL (0.60-1.30); GFR ESTIMATED > 60; GLUCOSE 305 MG/DL (70-105); POTASSIUM 3.8 MMOL/L (3.6-5.0); SODIUM 134 MMOL/L (135-145)
[2020-03-01 09:14] LABS: BASOPHILS % (AUTO) 0 % (0-10); EOSINOPHILS % (AUTO) 0 % (0-10); HEMATOCRIT 33 % (40-54); LYMPHOCYTES # (AUTO) 0.5 10^3/uL (1.0-4.0); LYMPHOCYTES % (AUTO) 14 % (12-44); MEAN CORPUSCULAR HEMOGLOBIN 33 pg (25-34); MEAN CORPUSCULAR HGB CONC 33 g/dL (32-36); MEAN CORPUSCULAR VOLUME 99 fL (80-99); MEAN PLATELET VOLUME 12.2 fL (9.0-12.2); MONOCYTES # (AUTO) 0.1 10^3/uL (0.0-1.0); MONOCYTES % (AUTO) 1 % (0-12); NEUTROPHILS # (AUTO) 2.9 10^3/uL (1.8-7.8); NEUTROPHILS % (AUTO) 83 % (42-75); PLATELET COUNT 200 10^3/uL (130-400); WHITE BLOOD COUNT 3.5 10^3/uL (4.3-11.0)
[2020-03-01 09:29] LABS: BUN/CREATININE RATIO 37; CALCIUM 8.4 MG/DL (8.5-10.1); CARBON DIOXIDE 20 MMOL/L (21-32); CHLORIDE 102 MMOL/L (98-107); CREATININE SERUM 0.75 MG/DL (0.60-1.30); GFR ESTIMATED > 60; GLUCOSE 253 MG/DL (70-105); POTASSIUM 4.3 MMOL/L (3.6-5.0); SODIUM 133 MMOL/L (135-145)
[2020-03-08 12:08] LABS: BASOPHILS % (AUTO) 1 % (0-10); EOSINOPHILS % (AUTO) 0 % (0-10); HEMATOCRIT 33 % (40-54); HEMOGLOBIN 10.6 g/dL (13.3-17.7); LYMPHOCYTES # (AUTO) 1.3 10^3/uL (1.0-4.0); LYMPHOCYTES % (AUTO) 27 % (12-44); MEAN CORPUSCULAR HEMOGLOBIN 33 pg (25-34); MEAN CORPUSCULAR HGB CONC 33 g/dL (32-36); MEAN CORPUSCULAR VOLUME 101 fL (80-99); MEAN PLATELET VOLUME 11.9 fL (9.0-12.2); MONOCYTES # (AUTO) 0.6 10^3/uL (0.0-1.0); MONOCYTES % (AUTO) 12 % (0-12); NEUTROPHILS # (AUTO) 2.8 10^3/uL (1.8-7.8); NEUTROPHILS % (AUTO) 56 % (42-75); PLATELET COUNT 226 10^3/uL (130-400)
[2020-03-08 12:26] LABS: BUN/CREATININE RATIO 33; CALCIUM 8.9 MG/DL (8.5-10.1); CARBON DIOXIDE 23 MMOL/L (21-32); CHLORIDE 102 MMOL/L (98-107); CREATININE SERUM 0.75 MG/DL (0.60-1.30); GFR ESTIMATED > 60; GLUCOSE 75 MG/DL (70-105); POTASSIUM 4.1 MMOL/L (3.6-5.0); SODIUM 137 MMOL/L (135-145)
[2020-03-14 13:45] LABS: BASOPHILS # (AUTO) 0.1 10^3/uL (0.0-0.1); BASOPHILS % (AUTO) 1 % (0-10); EOSINOPHILS % (AUTO) 1 % (0-10); HEMATOCRIT 31 % (40-54); LYMPHOCYTES # (AUTO) 1.3 10^3/uL (1.0-4.0); LYMPHOCYTES % (AUTO) 22 % (12-44); MEAN CORPUSCULAR HEMOGLOBIN 33 pg (25-34); MEAN CORPUSCULAR HGB CONC 32 g/dL (32-36); MEAN CORPUSCULAR VOLUME 101 fL (80-99); MONOCYTES # (AUTO) 0.9 10^3/uL (0.0-1.0); MONOCYTES % (AUTO) 16 % (0-12); NEUTROPHILS # (AUTO) 3.4 10^3/uL (1.8-7.8); NEUTROPHILS % (AUTO) 59 % (42-75); PLATELET COUNT 198 10^3/uL (130-400); WHITE BLOOD COUNT 5.8 10^3/uL (4.3-11.0)
[2020-03-14 14:05] LABS: ALANINE AMINOTRANSFERASE 72 U/L (0-55); ALBUMIN 3.6 GM/DL (3.2-4.5); ALKALINE PHOSPHATASE 161 U/L (40-136); BILIRUBIN,TOTAL 0.4 MG/DL (0.1-1.0); BUN/CREATININE RATIO 34; CALCIUM 8.6 MG/DL (8.5-10.1); CARBON DIOXIDE 26 MMOL/L (21-32); CHLORIDE 103 MMOL/L (98-107); CREATININE SERUM 0.73 MG/DL (0.60-1.30); GFR ESTIMATED > 60; GLUCOSE 96 MG/DL (70-105); MAGNESIUM 2.2 MG/DL (1.6-2.4); POTASSIUM 4.3 MMOL/L (3.6-5.0); SODIUM 138 MMOL/L (135-145); TOTAL PROTEIN 6.1 GM/DL (6.4-8.2)
[2020-03-21 13:53] LABS: BASOPHILS # (AUTO) 0.1 10^3/uL (0.0-0.1); BASOPHILS % (AUTO) 1 % (0-10); EOSINOPHILS % (AUTO) 0 % (0-10); HEMATOCRIT 23 % (40-54); HEMOGLOBIN 7.5 g/dL (13.3-17.7); LYMPHOCYTES # (AUTO) 1.4 10^3/uL (1.0-4.0); LYMPHOCYTES % (AUTO) 16 % (12-44); MEAN CORPUSCULAR HEMOGLOBIN 33 pg (25-34); MEAN CORPUSCULAR HGB CONC 32 g/dL (32-36); MEAN CORPUSCULAR VOLUME 103 fL (80-99); MEAN PLATELET VOLUME 12.3 fL (9.0-12.2); MONOCYTES # (AUTO) 0.8 10^3/uL (0.0-1.0); MONOCYTES % (AUTO) 10 % (0-12); NEUTROPHILS # (AUTO) 5.5 10^3/uL (1.8-7.8); NEUTROPHILS % (AUTO) 64 % (42-75); PLATELET COUNT 200 10^3/uL (130-400); WHITE BLOOD COUNT 8.6 10^3/uL (4.3-11.0)
[2020-03-21 14:11] LABS: BUN/CREATININE RATIO 47; CALCIUM 8.3 MG/DL (8.5-10.1); CARBON DIOXIDE 27 MMOL/L (21-32); CHLORIDE 102 MMOL/L (98-107); CREATININE SERUM 0.68 MG/DL (0.60-1.30); GFR ESTIMATED > 60; GLUCOSE 99 MG/DL (70-105); SODIUM 137 MMOL/L (135-145)
[2020-03-28 14:05] LABS: BASOPHILS % (AUTO) 1 % (0-10); EOSINOPHILS % (AUTO) 1 % (0-10); LYMPHOCYTES # (AUTO) 1.3 10^3/uL (1.0-4.0); LYMPHOCYTES % (AUTO) 15 % (12-44); MEAN CORPUSCULAR HEMOGLOBIN 33 pg (25-34); MEAN CORPUSCULAR HGB CONC 31 g/dL (32-36); MEAN CORPUSCULAR VOLUME 108 fL (80-99); MEAN PLATELET VOLUME 12.7 fL (9.0-12.2); MONOCYTES # (AUTO) 0.8 10^3/uL (0.0-1.0); MONOCYTES % (AUTO) 9 % (0-12); NEUTROPHILS # (AUTO) 5.6 10^3/uL (1.8-7.8); NEUTROPHILS % (AUTO) 64 % (42-75); PLATELET COUNT 225 10^3/uL (130-400); WHITE BLOOD COUNT 8.7 10^3/uL (4.3-11.0)
[2020-03-28 14:06] LABS: HEMATOCRIT 17 % (40-54); HEMOGLOBIN 5.2 g/dL (13.3-17.7)
[2020-03-28 14:26] LABS: RETICULOCYTE % 10.07 % (0.50-2.40)
[2020-03-28 14:27] LABS: BUN/CREATININE RATIO 59; CALCIUM 7.9 MG/DL (8.5-10.1); CARBON DIOXIDE 25 MMOL/L (21-32); CHLORIDE 103 MMOL/L (98-107); CREATININE SERUM 0.66 MG/DL (0.60-1.30); GFR ESTIMATED > 60; GLUCOSE 94 MG/DL (70-105); POTASSIUM 4.5 MMOL/L (3.6-5.0); SODIUM 136 MMOL/L (135-145)
[2020-04-04 10:20] LABS: BASOPHILS # (AUTO) 0.1 10^3/uL (0.0-0.1); BASOPHILS % (AUTO) 1 % (0-10); EOSINOPHILS % (AUTO) 0 % (0-10); LYMPHOCYTES # (AUTO) 1.1 10^3/uL (1.0-4.0); LYMPHOCYTES % (AUTO) 16 % (12-44); MEAN CORPUSCULAR HGB CONC 30 g/dL (32-36); MEAN CORPUSCULAR VOLUME 107 fL (80-99); MEAN PLATELET VOLUME 12.3 fL (9.0-12.2); MONOCYTES # (AUTO) 0.5 10^3/uL (0.0-1.0); MONOCYTES % (AUTO) 7 % (0-12); NEUTROPHILS # (AUTO) 5.1 10^3/uL (1.8-7.8); NEUTROPHILS % (AUTO) 72 % (42-75); PLATELET COUNT 261 10^3/uL (130-400)
[2020-04-04 10:27] LABS: HEMATOCRIT 20 % (40-54); HEMOGLOBIN 6.2 g/dL (13.3-17.7); MEAN CORPUSCULAR HEMOGLOBIN 32 pg (25-34)
[2020-04-04 10:40] LABS: BUN/CREATININE RATIO 47; CALCIUM 8.3 MG/DL (8.5-10.1); CARBON DIOXIDE 26 MMOL/L (21-32); CHLORIDE 104 MMOL/L (98-107); CREATININE SERUM 0.76 MG/DL (0.60-1.30); GFR ESTIMATED > 60; GLUCOSE 127 MG/DL (70-105); POTASSIUM 3.7 MMOL/L (3.6-5.0); SODIUM 140 MMOL/L (135-145)
[2020-04-06 13:11] LABS: BASOPHILS % (AUTO) 1 % (0-10); EOSINOPHILS % (AUTO) 0 % (0-10); LYMPHOCYTES # (AUTO) 1.3 10^3/uL (1.0-4.0); LYMPHOCYTES % (AUTO) 14 % (12-44); MEAN CORPUSCULAR HEMOGLOBIN 31 pg (25-34); MEAN CORPUSCULAR HGB CONC 30 g/dL (32-36); MEAN CORPUSCULAR VOLUME 105 fL (80-99); MEAN PLATELET VOLUME 12.2 fL (9.0-12.2); MONOCYTES % (AUTO) 11 % (0-12); NEUTROPHILS % (AUTO) 69 % (42-75); PLATELET COUNT 274 10^3/uL (130-400); WHITE BLOOD COUNT 8.7 10^3/uL (4.3-11.0)
[2020-04-06 13:14] LABS: HEMATOCRIT 20 % (40-54)
[2020-04-07 12:19] LABS: BASOPHILS % (AUTO) 0 % (0-10); EOSINOPHILS % (AUTO) 0 % (0-10); HEMATOCRIT 21 % (40-54); LYMPHOCYTES # (AUTO) 1.2 10^3/uL (1.0-4.0); LYMPHOCYTES % (AUTO) 13 % (12-44); MEAN CORPUSCULAR HEMOGLOBIN 31 pg (25-34); MEAN CORPUSCULAR HGB CONC 30 g/dL (32-36); MEAN CORPUSCULAR VOLUME 102 fL (80-99); MEAN PLATELET VOLUME 11.9 fL (9.0-12.2); MONOCYTES # (AUTO) 0.9 10^3/uL (0.0-1.0); MONOCYTES % (AUTO) 11 % (0-12); NEUTROPHILS # (AUTO) 6.4 10^3/uL (1.8-7.8); NEUTROPHILS % (AUTO) 73 % (42-75); PLATELET COUNT 258 10^3/uL (130-400); WHITE BLOOD COUNT 8.8 10^3/uL (4.3-11.0)
[2020-04-07 12:20] LABS: HEMOGLOBIN 6.3 g/dL (13.3-17.7)
[~2020-04-10] VITALS: Ht 174 cm; Wt 74.4 kg
[~2020-04-10] MED LIST changes: +ACHD5005 PO; -CATHETER FLUSH 10 ML SYR IV PRN; +D5W 500 ML IV (CANCER CTR) 500 ML IV SCH; +FAMOTIDINE 20MG/2ML IV (CANCER CTR) IV SCH; +FOSAPREPITANT (CANCER CENTER) 150 MG in NS (IVPB) CANCER CENTER ONLY 150 ML IV SCH; -HOLD METFORMIN - RECEIVED CONTRAST 20 ML VIAL IV SCH; -HYDR-3812 PO; -IOHEXOL 350 MG/ML 100 ML (OMNIPAQUE 350) VIAL IV ONE; +LEUCOVORIN CALCIUM 500 MG, LEUCOVORIN CALCIUM 100 MG in D5W 250 ML IVPB (CANCER CTR) 25... IV SCH; -NS 100 ML (IVPB) BAG IV ONE; +NS IV 1000 ML (CANCER CTR) 1,000 ML ONE; +NS IV 1000 ML (CANCER CTR) IV SCH; +NS IV 500 ML (CANCER CENTER) 500 ML ONE; +NS IV SCH; +OXALIPLATIN 100 MG, OXALIPLATIN (GENERIC) 20 MG in D5W 250 ML IVPB (CANCER CTR) 250 ML IV SCH; +PACLITAXEL IV SCH; +ZOLEDRONIC ACID (CANCER CTR) 4 MG in NS (IVPB) CANCER CENTER 100 ML IV SCH; +diphenhydrAMINE 50 MG/ML INJ (CANCER CENTER) ONE
== END | disposition home or self-care (01) ==
LOC: ONC 01-11 09:14
PROVIDERS: ATTEND Internal Medicine Hematology & Oncology
DX: C15.5 Malignant neoplasm of lower third of esophagus (principal); K76.9 Liver disease, unspecified; D35.01 Benign neoplasm of right adrenal gland; J38.01 Paralysis of vocal cords and larynx, unilateral; R59.0 Localized enlarged lymph nodes; E27.8 Other specified disorders of adrenal gland; M19.90 Unspecified osteoarthritis, unspecified site; Z98.890 Other specified postprocedural states; Z90.49 Acquired absence of other specified parts of digestive tract; Z96.652 Presence of left artificial knee joint
CPT/HCPCS: 80053; 83735; 85025; 96367; 96368; 96375; 96411; 96413; 96521; G0463; 36430; 36591; 80048; 82728; 83540; 85045; 86850; 86900; 86901; 86920; 96417; 99213

== ENCOUNTER → 2020-04-11 | Outpatient (CLI) | payer MEDICARE, OTHER ==
[~2020-04-11] MED LIST changes: -D5W 500 ML IV (CANCER CTR) 500 ML IV SCH; -FAMOTIDINE 20MG/2ML IV (CANCER CTR) IV SCH; -FOSAPREPITANT (CANCER CENTER) 150 MG in NS (IVPB) CANCER CENTER ONLY 150 ML IV SCH; -LEUCOVORIN CALCIUM 500 MG, LEUCOVORIN CALCIUM 100 MG in D5W 250 ML IVPB (CANCER CTR) 25... IV SCH; -NS IV 1000 ML (CANCER CTR) 1,000 ML ONE; -NS IV 1000 ML (CANCER CTR) IV SCH; -NS IV 500 ML (CANCER CENTER) 500 ML ONE; -NS IV SCH; -OXALIPLATIN 100 MG, OXALIPLATIN (GENERIC) 20 MG in D5W 250 ML IVPB (CANCER CTR) 250 ML IV SCH; -PACLITAXEL IV SCH; -ZOLEDRONIC ACID (CANCER CTR) 4 MG in NS (IVPB) CANCER CENTER 100 ML IV SCH; -diphenhydrAMINE 50 MG/ML INJ (CANCER CENTER) ONE
--- NOTE | 2020-04-11 14:43 | Diagnostic Imaging Report ---
INDICATION: Metastatic esophageal carcinoma with subsequent restaging and treatment response assessment. TECHNIQUE: Serum blood glucose level at the time of injection was 149 mg/dL. Patient was administered 14.6 mCi F-18 FDG intravenously in right antecubital location and PET imaging was performed from top of skull to mid thighs. Noncontrast CT was also performed for attenuation correction and anatomic correlation. COMPARISON: Correlation is made with prior PET/CT study from 10/12/2019. FINDINGS: There is symmetric activity throughout the brain. Soft tissue nodularity near the tracheoesophageal groove remains hypermetabolic with SUV max of 6.5. Small lymph node in the superior mediastinum along the chris and left aspect of the trachea demonstrates SUV max of 4.4. There is now hypermetabolism in the right hilum with SUV max of 8.2. Hypermetabolic lymph node in the subcarinal region anterior to the dilated esophagus demonstrates an SUV max of 5.9. This was not present on prior study. There is a very mildly hypermetabolic lymph node located between the distal esophagus and the descending thoracic aorta with an SUV max of 4.3. Hypermetabolism within the distal esophagus itself demonstrates SUV max of 5.1. Multiple hypermetabolic lesions within the right and left lobes of the liver are noted. Lesions in left lobe are new since prior exam with SUV max of 10.8. There is now hypermetabolic activity within the right adrenal gland with SUV max of 9.2. Intense hypermetabolic activity within multiple osseous structures is again noted, most notably left iliac bone which has increased significantly. There is activity within the L3 vertebral body as well as T11 and T10. Patient has developed a moderate-sized right pleural effusion since prior exam. There has also been development of ascites within the abdomen. There is some slightly nodular infiltration of the mesentery in the upper abdomen, perhaps on the basis of peritoneal carcinomatosis. IMPRESSION: 1. New hypermetabolic foci within the right hilum and subcarinal region. There are new masses within the liver and right adrenal gland. There is new pleural fluid and ascites with mesenteric nodularity and stranding. All of these consistent with worsening metastatic disease. Numerous osseous lesions are present as well. Dictated by: Dictated on workstation # [id number]
== END ==
LOC: RAD 08:15
PROVIDERS: ATTEND Internal Medicine Hematology & Oncology
DX: C15.5 Malignant neoplasm of lower third of esophagus (principal); C79.51 Secondary malignant neoplasm of bone; C78.7 Secondary malignant neoplasm of liver and intrahepatic bile duct; C78.02 Secondary malignant neoplasm of left lung
CPT/HCPCS: 78815; A9552

== ENCOUNTER 2020-04-12 10:14 | Outpatient (RCR) | payer MEDICARE, OTHER ==
[~2020-04-12 10:14] MED LIST changes: +FAMOTIDINE 20MG/2ML IV (CANCER CTR) IV SCH; +NS IV 1000 ML (CANCER CTR) IV SCH; +ZOLEDRONIC ACID (CANCER CTR) 4 MG in NS (IVPB) CANCER CENTER 100 ML IV SCH
== END 2020-07-11 | disposition home or self-care (01) ==
LOC: ONC 10:14
PROVIDERS: ATTEND Internal Medicine Hematology & Oncology
DX: C15.5 Malignant neoplasm of lower third of esophagus (principal); C79.51 Secondary malignant neoplasm of bone; C78.7 Secondary malignant neoplasm of liver and intrahepatic bile duct; D63.0 Anemia in neoplastic disease; Z98.890 Other specified postprocedural states; Z90.49 Acquired absence of other specified parts of digestive tract; Z96.652 Presence of left artificial knee joint